=== PATIENT | male | born 1975 | race Caucasian/White ===

== ENCOUNTER 2023-05-08 09:12 | Inpatient (IN) ==
--- NOTE | 2023-05-08 09:39 | Emergency Department Note ---
Impression & Plan Pancreatitis, Metabolic acidosis, DM II (diabetes mellitus, type II), controlled, Hyperglycemia, Sinus tachycardia ED Provider Note NAME: CANDICE STACY AGE: 47 SEX: M : 1975 ARRIVES VIA: Walk-In INFORMANT: Patient ED PROVIDER(S): Roman Dwyer DO CHIEF COMPLAINT: abdominal pain HPI: Patient is a 47-year-old male who presents to the ER for epigastric periumbilical abdominal pain which started this past Sunday after eating fish at [employer]. He admits to some nausea but that has abated now. He notes his symptoms are generally worse about an hour after eating. Denies any headache or change in vision. No chest pain or shortness of breath. No dysuria, urgency, or frequency. He has never had this before with the exception of when he had pancreatitis he notes this feels similar. No previous abdominal surgeries. He does not drink alcohol. He believes the last time he had pancreatitis it was medication induced and he has stopped that medication but he forgets what it is. ADDITIONAL HISTORY OBTAINED: Per HPI Chronic Medical/Social Conditions Affecting Care: Per HPI PAST MEDICAL HISTORY:See Below PAST SURGICAL HISTORY:See Below FAMILY HISTORY:See Below SOCIAL HISTORY:See Below HOME MEDICATIONS:See Below ALLERGIES:See Below VITALS:See Below PHYSICAL EXAMINATION: GENERAL: Sitting up in bed, alert, well appearing, well nourished, no distress, non-toxic EYE EXAM: normal conjunctiva. OROPHARYNX: mucous membranes are moist LUNGS: Clear to auscultation. Normal chest wall mechanics HEART: no murmurs, S1 normal and S2 normal ABDOMEN: abdomen soft, tenderness to palpation in the epigastric/right upper quadrant, normo-active bowel sounds, no masses, no rebound or guarding. UPPER EXTREMITIES: upper extremities are grossly normal. LOWER EXTREMITIES: No pitting edema. NEURO EXAM: Normal sensorium, cranial nerves II-XII grossly intact, normal speech, no gross weakness of arms, no gross weakness of legs. MEDICAL DECISION MAKING: Patient is a 47-year-old male who presents ER with past medical history of pancreatitis and diabetes with above-stated complaint. IV was established blood was obtained. Labs show no significant leukocytosis or anemia. VBG with pH is 7.30. BMP with a slight acidosis with a CO2 of 19 and a gap of 14. Glucose was close patient 370 LFTs bilirubin was unremarkable. UA was contaminated. CT abdomen pelvis does show acute pancreatitis. Patient's potassium was repleted orally. Patient has not taken any insulin for several weeks. Patient was updated bedside discussed with hospitalist admitted for further workup. He was given IV fluids while in the ER. Consults/Care Managements Discussions: Per [facility] Triage Nursing notes reviewed. Limited review of prior medical records performed Vital Signs: reviewed and remarkable for tachy Differential diagnosis: Differential diagnoses includes but is not limited to gastritis, peptic ulcer disease, GERD, gallbladder disease, pancreatitis, small bowel obstruction, appendicitis, diverticulitis, hernia, urinary tract infection, torsion, [/ectopic (if female)], perforation, trauma, infectious. ER treatment provided: See below Diagnostics interpreted by me include EKG and cardiac monitoring as listed below: -Cardiac Monitoring: An order was placed for continuous cardiac monitoring. The monitor shows a rate of 110 with sinus rhythm. -ECG: Sinus tachycardia rate of 112 Normal axis No PVCs QTc 428 -Laboratory studies:Interpreted by me as stated above in MDM and shown below. Imaging studies: Xrays: As interpreted by me: Portable AP upright 1 view of the chest shows no focal Lutrate CTs show: CT abdomen pelvis shows pancreatitis Critical Care: None Past Med/Surg History Medical History (Updated 05/08/23 @ 15:39 by Roman Dwyer DO) Sinus tachycardia DM II (diabetes mellitus, type II), controlled Pancreatitis Social History Smoking Status: Never smoker Feels Safe at Home: Yes Allergies Allergies Allergy/AdvReac Type Severity Reaction Status Date / Time No Known Allergies Allergy Unverified 05/08/23 09:19 Home Meds Home Medications Medication Instructions Recorded Confirmed hydroxyzine HCl 10 mg tablet 10 mg PO DAILY PRN Anxiety 05/08/23 05/08/23 losartan 100 mg tablet 100 mg PO DAILY 05/08/23 05/08/23 rosuvastatin 5 mg tablet 5 mg PO QAM 05/08/23 05/08/23 zolpidem 5 mg tablet 5 mg PO HS PRN Sleep 05/08/23 05/08/23 Results & Data (ED) Vital Signs Vital Signs - 24 hr 05/08/23 09:15 05/08/23 10:35 05/08/23 10:47 Temperature 36.5 C Temperature Source Temporal Artery Scan Pulse Rate 120 H 112 H 113 H Pulse Rhythm Regular Respiratory Rate 20 20 Respiratory Effort / Characteristics Non-Labored Spontaneous Respiratory Depth Normal Blood Pressure 148/93 H 173/98 H Blood Pressure Mean 111 123 Pulse Oximetry 97 98 Oxygen Delivery Method Room Air Room Air Sepsis Recent Fever Within 48 Hours No Sepsis New/Unexplained Change in Mental Status No Sepsis Action Taken by Nursing No Action Required 05/08/23 12:10 05/08/23 13:18 05/08/23 14:23 Temperature Temperature Source Pulse Rate 100 H 106 H 110 H Pulse Rhythm Respiratory Rate 12 12 Respiratory Effort / Characteristics Respiratory Depth Blood Pressure 173/98 H 135/93 Blood Pressure Mean 123 107 Pulse Oximetry 98 92 Oxygen Delivery Method Room Air Room Air Sepsis Recent Fever Within 48 Hours Sepsis New/Unexplained Change in Mental Status Sepsis Action Taken by Nursing 05/08/23 14:45 Temperature Temperature Source Pulse Rate 104 H Pulse Rhythm Respiratory Rate 12 Respiratory Effort / Characteristics Respiratory Depth Blood Pressure 135/93 Blood Pressure Mean 107 Pulse Oximetry 96 Oxygen Delivery Method Room Air Sepsis Recent Fever Within 48 Hours Sepsis New/Unexplained Change in Mental Status Sepsis Action Taken by Nursing Laboratory Data 05/08/23 09:40 05/08/23 14:26 Lab Results 05/08/23 05/08/23 05/08/23 Range/Units 09:34 09:40 12:07 WBC 6.29 (4.8-10.8) K/ul RBC 4.89 (4.70-6.10) M/uL Hgb 15.0 (14.0-18.0) g/dl Hct 41.3 L (42.0-52.0) % MCV 84.5 (80.0-100.0) fL MCH 30.7 (25.0-34.0) pg MCHC 36.3 H (32.0-36.0) g/dL RDW Std Deviation 39.0 (36.4-46.3) fL RDW Coeff of Kia 12.9 (11.5-14.5) % Plt Count 193 (130-400) K/uL MPV 11.2 (9.4-12.4) fL Immature Gran % (Auto) 0.5 % Neut % (Auto) 54.5 % Lymph % (Auto) 31.6 % Maury % (Auto) 10.5 % Eos % (Auto) 2.4 % Baso % (Auto) 0.5 % Neut # (Auto) 3.43 (1.40-6.50) K/uL Lymph # (Auto) 1.99 (1.20-3.40) K/uL Maury # (Auto) 0.66 H (0.11-0.59) K/uL Eos # (Auto) 0.15 (0.00-0.50) K/uL Baso # (Auto) 0.03 (0.00-0.20) K/uL Immature Gran # (Auto) 0.03 (0.01-0.20) K/uL Absolute Nucleated RBC 0.02 (0.00-0.12) K/uL Nucleated RBC % (auto) 0.3 % Polychromasia 1+ Tear Drop Cells 1+ Acanthocytes (Spur) 1+ VBG pH 7.30 L (7.36-7.41) VBG pCO2 49 (38-50) mmHg VBG pO2 29 mmHg VBG HCO3 24 mmol/L VBG O2 Saturation < 60.0 % VBG Base Excess -2.8 mEq/L Sodium 135 L (136-145) mmol/L Potassium TNP Cancelled Chloride 98 (98-107) mmol/L Carbon Dioxide 20 L (21-32) mmol/L Anion Gap 17 H (3-11) BUN 10 (6-23) mg/dl Creatinine 1.06 (0.6-1.4) mg/dl Est Cr Clr Drug Dosing 110.4 ml/min Est GFR ( Amer) 95.7 ml/min Est GFR (Non-Af Amer) 82.6 ml/min BUN/Creatinine Ratio 9.4 L (10-20) Glucose 401 H* (70-99(Fasting)) mg/dl POC Glucose (70-99) mg/dl Estimat Average Glucose mg/dl Hemoglobin A1c (4.5-5.6) % Calcium 9.2 (8.6-10.3) mg/dl Phosphorus (2.5-4.9) mg/dl Magnesium (1.7-2.4) mg/dl Total Bilirubin 0.6 (0.2-1.0) mg/dl AST TNP Cancelled ALT 14 (7-52) U/L Alkaline Phosphatase 67 (34-104) U/L Total Protein 7.3 (6.0-8.3) gm/dl Albumin 4.1 (3.4-5.0) gm/dl Globulin 3.2 (2.5-4.0) gm/dl Albumin/Globulin Ratio 1.3 (0.9-2) Lipase 81 (11-82) U/L Urine Color Yellow Urine Appearance Clear (Clear) Urine pH 5.5 (4.5-7.5) Ur Specific [place] 1.040 H (1.000-1.030) Urine Protein 2+ H (Negative) Urine Glucose (UA) 3+ H (Negative) Urine Ketones 4+ H (Negative) Urine Blood 1+ H (Negative) Urine Nitrite Negative (Negative) Urine Bilirubin Negative (Negative) Urine Urobilinogen Negative (Negative) Ur Leukocyte Esterase Negative (Negative) Urine WBC (Auto) 0 (0-5) /hpf Urine RBC (Auto) 0-4 (0-4) /hpf U Hyaline Cast (Auto) 0 (0-5) /lpf U Epithel Cells (Auto) 0-5 (0-5) /lpf Urine Bacteria (Auto) Negative (Negative) 05/08/23 05/08/23 05/08/23 Range/Units 12:20 14:10 14:26 WBC (4.8-10.8) K/ul RBC (4.70-6.10) M/uL Hgb (14.0-18.0) g/dl Hct (42.0-52.0) % MCV (80.0-100.0) fL MCH (25.0-34.0) pg MCHC (32.0-36.0) g/dL RDW Std Deviation (36.4-46.3) fL RDW Coeff of Kia (11.5-14.5) % Plt Count (130-400) K/uL MPV (9.4-12.4) fL Immature Gran % (Auto) % Neut % (Auto) % Lymph % (Auto) % Maury % (Auto) % Eos % (Auto) % Baso % (Auto) % Neut # (Auto) (1.40-6.50) K/uL Lymph # (Auto) (1.20-3.40) K/uL Maury # (Auto) (0.11-0.59) K/uL Eos # (Auto) (0.00-0.50) K/uL Baso # (Auto) (0.00-0.20) K/uL Immature Gran # (Auto) (0.01-0.20) K/uL Absolute Nucleated RBC (0.00-0.12) K/uL Nucleated RBC % (auto) % Polychromasia Tear Drop Cells Acanthocytes (Spur) VBG pH 7.31 L (7.36-7.41) VBG pCO2 44 (38-50) mmHg VBG pO2 39 mmHg VBG HCO3 22 mmol/L VBG O2 Saturation 71.7 % VBG Base Excess -4.1 mEq/L Sodium 137 (136-145) mmol/L Potassium 4.2 Chloride 104 (98-107) mmol/L Carbon Dioxide 19 L (21-32) mmol/L Anion Gap 14 H (3-11) BUN 9 (6-23) mg/dl Creatinine 0.80 (0.6-1.4) mg/dl Est Cr Clr Drug Dosing 146.2 ml/min Est GFR ( Amer) 122.4 ml/min Est GFR (Non-Af Amer) 105.6 ml/min BUN/Creatinine Ratio 11.3 (10-20) Glucose 268 H (70-99(Fasting)) mg/dl POC Glucose 272 H (70-99) mg/dl Estimat Average Glucose 398 mg/dl Hemoglobin A1c 15.5 H (4.5-5.6) % Calcium 9.4 (8.6-10.3) mg/dl Phosphorus 2.7 (2.5-4.9) mg/dl Magnesium 1.9 (1.7-2.4) mg/dl Total Bilirubin (0.2-1.0) mg/dl AST 9 L ALT (7-52) U/L Alkaline Phosphatase (34-104) U/L Total Protein (6.0-8.3) gm/dl Albumin (3.4-5.0) gm/dl Globulin (2.5-4.0) gm/dl Albumin/Globulin Ratio (0.9-2) Lipase (11-82) U/L Urine Color Urine Appearance (Clear) Urine pH (4.5-7.5) Ur Specific [place] (1.000-1.030) Urine Protein (Negative) Urine Glucose (UA) (Negative) Urine Ketones (Negative) Urine Blood (Negative) Urine Nitrite (Negative) Urine Bilirubin (Negative) Urine Urobilinogen (Negative) Ur Leukocyte Esterase (Negative) Urine WBC (Auto) (0-5) /hpf Urine RBC (Auto) (0-4) /hpf U Hyaline Cast (Auto) (0-5) /lpf U Epithel Cells (Auto) (0-5) /lpf Urine Bacteria (Auto) (Negative) Administered Medications Discontinued Medications Sodium Chloride (Nss) 500 mls @ 999 mls/hr IV .Q31M STA Stop: 05/08/23 09:48 Last Admin: 05/08/23 09:44 Dose: Not Given Documented By: JEOVANNY Sodium Chloride (Nss) 1,000 mls @ 999 mls/hr IV .Q1H1M MAXINE Stop: 05/08/23 11:45 Last Infusion: 05/08/23 12:45 Dose: Infused Documented By: Admin: 05/08/23 11:44 Dose: 999 mls/hr Documented By: Infusion: 05/08/23 11:41 Dose: Infused Documented By: Admin: 05/08/23 09:44 Dose: 999 mls/hr Documented By: JEOVANNY Ioversol (Optiray 320 100ml) 91 ml IV ONCE ONE Stop: 05/08/23 11:49 Last Admin: 05/08/23 11:43 Dose: 91 ml Documented By: SAWYER Morphine Sulfate (Morphine Sulfate 4 Mg/Ml 1 Ml Carp\Vial) 4 mg IV NOW STA Stop: 05/08/23 09:37 Last Admin: 05/08/23 09:44 Dose: 4 mg Documented By: JEOVANNY Ondansetron HCl (Ondansetron Inj 2 Mg/Ml 2 Ml Vial) 4 mg IV NOW STA Stop: 05/08/23 09:37 Last Admin: 05/08/23 09:44 Dose: 4 mg Documented By: JEOVANNY Imaging Data Radiologist's Impression: Abdomen/Pelvis CT 05/08/23 09:36 CT abd pelvis IV con only CLINICAL HISTORY: epigastric abd pain feels like previous pancreatitis TECHNIQUE: Helical axial images of the abdomen and pelvis were obtained and displayed. Automated dose lowering techniques and/or adjustment according to patient size were utilized for this exam. This exam was performed with intravenous contrast. CT DOSE: 1594.21 mGy.cm COMPARISON: None available at the time of this dictation. FINDINGS: Lower chest: Bibasilar atelectasis versus scarring is seen. Liver: Questionable hepatic steatosis. Gallbladder and biliary tree: No calcified gallstones. Normal caliber wall. No intra- or extrahepatic biliary ductal dilation. Pancreas: Edema in the pancreatic head is seen with mild surrounding stranding. Spleen: Unremarkable. Adrenals: Unremarkable. Kidneys and ureters: Perinephric stranding is noted bilaterally. Bladder: Unremarkable. Reproductive organs: Unremarkable. Bowel: The appendix measures 9 mm with mildly prominent belle, no fat stranding is seen. Lymph nodes Retroperitoneal: Unremarkable. Pelvic: Unremarkable. Mesenteric: Unremarkable. Peritoneum: Normal. Vessels: Unremarkable. Abdominal wall: Right fat-containing inguinal hernia. Bones: Degenerative changes in the visualized spine. IMPRESSION: There is mild stranding of the pancreatic head compatible with mild pancreatitis. No acute peripancreatic collection or necrosis is seen. ACT 112: Negative or not required by law. Electronically signed by: Joseph Hernández M.D. 05/08/2023 12:20 PM Chest X-Ray 05/08/23 14:19 XR chest 1V portable HISTORY: Eval volume status, fever, chills COMPARISON: Abdomen and pelvis CT 05/08/2023. FINDINGS: No pneumothorax. No pleural effusions. The cardiac silhouette is borderline enlarged. Small right basilar linear densities favor subsegmental atelectasis are scarring. Otherwise, the lungs are clear. No evidence for pulmonary edema. No acute fractures. Mild proximal left tracheal deviation. IMPRESSION: 1. Borderline cardiomegaly. Otherwise, no acute process within the chest. 2. Mild proximal left tracheal deviation. This could be positional or due to a right thyroid goiter. Follow-up nonemergent thyroid ultrasound recommended for further evaluation. ACT 112: Negative or not required by law. Electronically signed by: Henrique Herndon M.D. 05/08/2023 2:35 PM Discharge Plan Visit Data Chief Complaint: Abdominal Pain Stated Complaint: ABD PAINS, BODY ACHES ED Provider: Roman Dwyer Discharge Problem: Pancreatitis, Metabolic acidosis, DM II (diabetes mellitus, type II), controlled, Hyperglycemia, Sinus tachycardia Forms Stand Alone Forms: [facility] [place] Prescriptions Prescriptions: No Action zolpidem 5 mg Tablet 5 mg PO HS PRN (Reason: Sleep) hydroxyzine HCl 10 mg tablet 10 mg PO DAILY PRN (Reason: Anxiety) losartan 100 mg Tablet 100 mg PO DAILY rosuvastatin 5 mg tablet 5 mg PO QAM Referrals Referrals: PCP,NO [Physician] - Discharge Problem: Pancreatitis Qualifiers: Chronicity: acute Pancreatitis type: unspecified pancreatitis type Acute pancreatitis complication: unspecified Qualified Code(s): K85.90 - Acute pancreatitis without necrosis or infection, unspecified DM II (diabetes mellitus, type II), controlled Qualifiers: Diabetes mellitus terminal carman insulin use: unspecified jail insulin use status Diabetes mellitus complication status: with unspecified complications Q ualified Code(s): E11.8 - Type 2 diabetes mellitus with unspecified complications
[2023-05-08] MEDS: SODIUM CHLORIDE 0.9% 1,000 ML IV SCH (09:44)
[2023-05-08] MEDS: MoRPHine SULFATE 4 MG/ML 1 ML CARP\\VIAL IV STA (09:44)
[2023-05-08] MEDS: ONDANSETRON INJ 2 MG/ML 2 ML VIAL IV STA (09:44)
[2023-05-08] MEDS: SODIUM CHLORIDE 0.9% 500 ML IV STA (09:44)
[2023-05-08 10:37] LABS: Appearance Urine Clear (Clear); Bacteria Urine Automated Negative (Negative); Bilirubin Urine Negative (Negative); Blood Urine 1+ (Negative); Cast Urine Automated 0 /lpf (0-5); Color Urine Yellow; Epithelial Cell Urine Auto 0-5 /lpf (0-5); Glucose Urine UA 3+ (Negative); Ketones Urine 4+ (Negative); Leukocyte Esterase Urine Negative (Negative); Nitrite Urine Negative (Negative); Protein Urine 2+ (Negative); RBC Urine Automated 0-4 /hpf (0-4); Urobilinogen Urine Negative (Negative); WBC Urine Automated 0 /hpf (0-5); pH Urine 5.5 (4.5-7.5)
[2023-05-08 10:56] LABS: Basophils # (auto) 0.03 K/uL (0.00-0.20); Basophils % (auto) 0.5 %; Eosinophils # (auto) 0.15 K/uL (0.00-0.50); Eosinophils % (auto) 2.4 %; Hematocrit (blood only) 41.3 % (42.0-52.0); Immature Granulocytes # (auto) 0.03 K/uL (0.01-0.20); Immature Granulocytes % (auto) 0.5 %; Lymphocytes # (auto) 1.99 K/uL (1.20-3.40); Lymphocytes % (auto) 31.6 %; Mean Corpuscular Hemoglobin 30.7 pg (25.0-34.0); Mean Corpuscular Hgb Conc 36.3 g/dL (32.0-36.0); Mean Corpuscular Volume 84.5 fL (80.0-100.0); Mean Platelet Volume 11.2 fL (9.4-12.4); Monocytes # (auto) 0.66 K/uL (0.11-0.59); Monocytes % (auto) 10.5 %; Neutrophils # (auto) 3.43 K/uL (1.40-6.50); Neutrophils % (auto) 54.5 %; Nucleated RBC # (auto) 0.02 K/uL (0.00-0.12); Nucleated RBC % (auto) 0.3 %; Platelet Count 193 K/uL (130-400); RDW Coefficient of Variation 12.9 % (11.5-14.5); Red Blood Count 4.89 M/uL (4.70-6.10); White Blood Count 6.29 K/ul (4.8-10.8)
[2023-05-08 11:01] LABS: Acanthocytes 1+; Polychromasia 1+; Tear Drop Cells 1+
[2023-05-08 11:22] LABS: Alanine Aminotransferase 14 U/L (7-52); Albumin Globulin Ratio 1.3 (0.9-2); Albumin Level 4.1 gm/dl (3.4-5.0); Alkaline Phosphatase 67 U/L (34-104); Anion Gap 17 (3-11); BUN Creatinine Ratio 9.4 (10-20); Bilirubin,Total 0.6 mg/dl (0.2-1.0); Blood Urea Nitrogen 10 mg/dl (6-23); Calcium 9.2 mg/dl (8.6-10.3); Carbon Dioxide 20 mmol/L (21-32); Chloride 98 mmol/L (98-107); Creatinine Clr Calc Pharmacy 110.4 ml/min; Est GFR (African American) 95.7 ml/min; Est GFR (Non-African American) 82.6 ml/min; Globulin 3.2 gm/dl (2.5-4.0); Glucose 401 mg/dl (70-99(Fasting)); Lipase 81 U/L (11-82); Sodium 135 mmol/L (136-145); Total Protein 7.3 gm/dl (6.0-8.3)
[2023-05-08] MEDS: OPTIRAY 320 100ml IV ONE (11:43)
[2023-05-08 12:19] LABS: Base Excess VBG -2.8 mEq/L; HCO3 VBG 24 mmol/L; Oxygen Saturation VBG < 60.0 %; PCO2 VBG 49 mmHg (38-50); PO2 VBG 29 mmHg
--- NOTE | 2023-05-08 12:22 | CT Scan Report ---
CT abd pelvis IV con only CLINICAL HISTORY: epigastric abd pain feels like previous pancreatitis TECHNIQUE: Helical axial images of the abdomen and pelvis were obtained and displayed. Automated dose lowering techniques and/or adjustment according to patient size were utilized for this exam. This e xam was performed with intravenous contrast. CT DOSE: 1594.21 mGy.cm COMPARISON: None available at the time of this dictation. FINDINGS: Lower chest: Bibasilar atelectasis versus scarring is seen. Liver: Questionable hepatic steatosis. Gallbladder and biliary tree: No calcified gallstones. Normal caliber wall. No intra- or extrahepatic biliary ductal dilation. Pancreas: Edema in the pancreatic head is seen with mild surrounding stranding. Spleen: Unremarkable. Adrenals: Unremarkable. Kidneys and ureters: Perinephric stranding is noted bilaterally. Bladder: Unremarkable. Reproductive organs: Unremarkable. Bowel: The appendix measures 9 mm with mildly prominent belle, no fat stranding is seen. Lymph nodes Retroperitoneal: Unremarkable. Pelvic: Unremarkable. Mesenteric: Unremarkable. Peritoneum: Normal. Vessels: Unremarkable. Abdominal wall: Right fat-containing inguinal hernia. Bones: Degenerative changes in the visualized spine. IMPRESSION: There is mild stranding of the pancreatic head compatible with mild pancreatitis. No acute peripancre atic collection or necrosis is seen. ACT 112: Negative or not required by law. Electronically signed by: Joseph Hernández M.D. 05/08/2023 12:20 PM
--- NOTE | 2023-05-08 13:25 | History & Physical Report ---
Date of Service May 08, 2023 Assessment & Plan (1) Pancreatitis: (2) Metabolic acidosis: (3) DM II (diabetes mellitus, type II), controlled: (4) Hyperglycemia: Plan: Acute Pancreatitis - Admit to med surg - NPO for now - Fluid hydration, antiemetics, pain control - CT abd/pelvis reviewed showing pancreatic head stranding showing mild pancreatitis, lipase only 81 Metabolic Acidosis DM II HHS - Glucose of 400 down to 270 s/p fluid resuscitation, AG of 17, pH of 7.3, awaiting potassium to determine insulin administration/fluids. possibly may require insulin gtt, pending repeat labs --- insulin basal bolus ordered, no gtt for now. - Dehydration secondary to acute pancreatitis and inability to tolerate po intake - Check A1c, repeat VBG, mag and Phos now, trending BMP, and other labs every 4 hours - Once lab diet can have heart healthy/diabetic Sinus tachycardia Questionable history of CHF and Cardiomyopathy? HTN HLD -Check EKG now as was not yet obtained in the ER, follow-up echocardiogram with history of an EF of 30% - Will obtain ECHO today -Consider trying to obtain records from [facility] in [place] from 2019, that was his most recent cardiology outpatient following reports having previous PCI at that timeframe and was taken off testosterone which apparently may have been causing cardiac causes. He was also previously on metoprolol, stopped in 2020 himself because of insurance issues again. - Consider cardiology consultation - will need to est as outpat upon discharge - Cont losartan 100 mg daily, rosuvastatin 5 mg daily - Consider metoprolol if no improvement in tachycardia as above Fever, chills - Continue infectious workup to r/o other causes including CXR --negative for acute process but shows left tracheal deviation - possible R thyroid goiter, nonemergent US thyroid recommended, can defer to PCP due to insurance coverage - Check RVP swab to r/o flu/RSV/Covid --- negative - UA is negative for acute infection and was obtained for hyperglycemia as above - WBC 6.29, afebrile here, DVT ppx: teds, scds Lines: 2 PIV FEN/GI: Fluid as above, NPO CODE: FULL Dispo: From home, likely to remain in the hospital x 1-2 days A total of 85 minutes were spent with greater than 50% of that time face to face with the patient, personally reviewing all current laboratories, imaging studies, past medication reconciliation, outpatient chart review, and discussion with specialists to collaborate care for the patient with attending. Please see attending documentation for corrections and/or additions. (5) Sinus tachycardia: History of Present Illness Chief Complaint: Abdominal Pain Primary Care Provider: Mitzi Dickerson PA-C This is a 47 yo M with PMHx of pancreatitis, HTN, HLD, history of tachycardia with previous echo which showed reduced EF of 30% and cardiac cath in 2019 which is reportedly clean per the patient, history of DM type II since age 26, but has been off of NovoLog since he lost his job and health insurance in December 2022. He's trialed metformin however states that it didn't work effectively to reduce his A1C. 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 He is requesting another prescription for insulin versus diabetic medication at this time as he feels he will be able to afford it, his insurance kicks in in the middle of May. He presents to hospital with increased abdominal pain, nausea, vomiting. CT of the abdomen is showing mild pancreatitis. He has not taken medications including novolog for several weeks. This started on Sunday, with abdominal pain and 1 episode of diarrhea. He reports no further diarrhea since that time, but epigastric abdominal pain is coming down his left flank region to the lower quadrant. He has had intermittent nausea, no vomiting, loss of appetite, without any p.o. intake today. He reports having chills/sweats the last 3 days with possible fever but did not take his temperature at home. He denies any recent sick contacts. Patient is tachycardic at bedside, he states that he has consistently had a faster heartbeat. He was previously followed by [facility] in [place] in 2020 where he was noted to have had cardiac pauses where he felt like his heart stopped, at that time he was on testosterone. In echocardiogram was done at that point showing heart function of 30%, and then underwent a PCI which showed clean cardiac cath per the patient. He thinks he had a repeat ultrasound of his heart later which showed improvement in such after being taken off of testosterone replacement. On admission, glucose is 400, improved to 270 with fluids in the ER. Metabolic acidosis with pH of 7.3, AG of 17, and pt with urines showing ketones. He feels improved since coming here and receiving fluids. Social history: Denies alcohol use, tobacco use, illicit drug use and marijuana Family history: Strong family history of diabetes, his mom, maternal uncle sister and father all have diabetes, father side has strong history of hypertension Surgical history: Left knee meniscus repair x 3, last in 2013 Right knee meniscus repair x 1 Bilateral shoulder rotator cuff surgery, Right in 2016, left in 2018 Allergies Allergy/AdvReac Type Severity Reaction Status Date / Time No Known Allergies Allergy Unverified 05/08/23 09:19 Home Medications Medication Instructions Recorded Confirmed Type hydroxyzine HCl 10 mg tablet 10 mg PO DAILY PRN Anxiety 05/08/23 05/08/23 History losartan 100 mg tablet 100 mg PO DAILY 05/08/23 05/08/23 History rosuvastatin 5 mg tablet 5 mg PO QAM 05/08/23 05/08/23 History zolpidem 5 mg tablet 5 mg PO HS PRN Sleep 05/08/23 05/08/23 History Past Med/Surg History Medical History (Updated 05/08/23 @ 15:39 by Roman Dwyer DO) Sinus tachycardia DM II (diabetes mellitus, type II), controlled Pancreatitis Social History Smoking Status: Never smoker Second Hand Exposure: No; Do You Dip or Chew Tobacco: No; Tobacco Cessation Education Requested by Patient: No Hx Alcohol Use: No Hx Substance Use: No Preferred Language: American Communication Ability: Effective Athletic Events Scorer Required: No Beliefs That Will Affect Care: None Current Living Situation: Spouse Other Information That Helps Us Care for You: No Feels Safe at Home: Yes Assistive Devices: None Review of Systems 2 Review of Systems: Constitutional:+ fever, + chills as per HPI Eyes: No diplopia, no worsening or blurred vision ENT: normal hearing, no trouble swallowing Respiratory: No cough, sputum, dyspnea at rest or on exertion Cardiovascular: No chest pain, tightness or palpitations, no lightheadedness or dizziness Abdomen: + Epigastric pain, radiating to the left flank and left lower quadrant, + nausea, no vomiting, diarrhea or constipation Musculoskeletal: No joint pain, calf pain, swelling Neurologic: No weakness, numbness/tingling, or balance problems Psychiatric: No anxiety or depression Skin: No rash or itch Physical Exam Physical Exam: General: awake, alert, no apparent distress, white male Head: Normocephalic, atraumatic ENT: PERRL, EOMI, no pharyngeal exudate, mucous membranes moist Chest: Clear to auscultation, on room air, no adventitious breath sounds Cardiac: + sinus tachy, no murmur, no JVD, normal peripheral pulses, good capillary refill Abdominal: NABS x 4 quadrants, soft, nondistended, + epigastric tender to palpation, no rebound or guarding Extremities: Normal inspection, no peripheral edema or erythema, calfs nontender to palpation Psych: Normal mood and affect Neuro: AAO x 3, strength intact bilaterally and rated 5/5, no motor deficits, speech is clear, no peripheral sensory deficits Results & Data Results & Data Vital Signs (Past 12 Hours) Vital Signs Temp Pulse Resp BP Pulse Ox O2 Del Method 05/08/23 12:10 100 H 12 173/98 H 98 Room Air 05/08/23 10:47 113 H 05/08/23 10:35 112 H 20 173/98 H 98 Room Air 05/08/23 09:15 36.5 C 120 H 20 148/93 H 97 Room Air Laboratory Results 05/08/23 05/08/23 05/08/23 12:20 12:07 09:40 WBC 6.29 RBC 4.89 Hgb 15.0 Hct 41.3 L MCV 84.5 MCH 30.7 MCHC 36.3 H RDW Std Deviation 39.0 RDW Coeff of Kia 12.9 Plt Count 193 MPV 11.2 Immature Gran % (Auto) 0.5 Neut % (Auto) 54.5 Lymph % (Auto) 31.6 Wayne % (Auto) 10.5 Eos % (Auto) 2.4 Baso % (Auto) 0.5 Neut # (Auto) 3.43 Lymph # (Auto) 1.99 Wayne # (Auto) 0.66 H Eos # (Auto) 0.15 Baso # (Auto) 0.03 Immature Gran # (Auto) 0.03 Absolute Nucleated RBC 0.02 Nucleated RBC % (auto) 0.3 Polychromasia 1+ Tear Drop Cells 1+ Acanthocytes (Spur) 1+ VBG pH 7.30 L VBG pCO2 49 VBG pO2 29 VBG HCO3 24 VBG O2 Saturation < 60.0 VBG Base Excess -2.8 Sodium 135 L Potassium TNP Chloride 98 Carbon Dioxide 20 L Anion Gap 17 H BUN 10 Creatinine 1.06 Est Cr Clr Drug Dosing 110.4 Est GFR ( Amer) 95.7 Est GFR (Non-Af Amer) 82.6 BUN/Creatinine Ratio 9.4 L Glucose 401 H* POC Glucose 272 H Calcium 9.2 Total Bilirubin 0.6 AST TNP ALT 14 Alkaline Phosphatase 67 Total Protein 7.3 Albumin 4.1 Globulin 3.2 Albumin/Globulin Ratio 1.3 Lipase 81 Urine Color Urine Appearance Urine pH Ur Specific [place] Urine Protein Urine Glucose (UA) Urine Ketones Urine Blood Urine Nitrite Urine Bilirubin Urine Urobilinogen Ur Leukocyte Esterase Urine WBC (Auto) Urine RBC (Auto) U Hyaline Cast (Auto) U Epithel Cells (Auto) Urine Bacteria (Auto) 05/08/23 09:34 WBC RBC Hgb Hct MCV MCH MCHC RDW Std Deviation RDW Coeff of Kia Plt Count MPV Immature Gran % (Auto) Neut % (Auto) Lymph % (Auto) Wayne % (Auto) Eos % (Auto) Baso % (Auto) Neut # (Auto) Lymph # (Auto) Wayne # (Auto) Eos # (Auto) Baso # (Auto) Immature Gran # (Auto) Absolute Nucleated RBC Nucleated RBC % (auto) Polychromasia Tear Drop Cells Acanthocytes (Spur) VBG pH VBG pCO2 VBG pO2 VBG HCO3 VBG O2 Saturation VBG Base Excess Sodium Potassium Chloride Carbon Dioxide Anion Gap BUN Creatinine Est Cr Clr Drug Dosing Est GFR ( Amer) Est GFR (Non-Af Amer) BUN/Creatinine Ratio Glucose POC Glucose Calcium Total Bilirubin AST ALT Alkaline Phosphatase Total Protein Albumin Globulin Albumin/Globulin Ratio Lipase Urine Color Yellow Urine Appearance Clear Urine pH 5.5 Ur Specific [place] 1.040 H Urine Protein 2+ H Urine Glucose (UA) 3+ H Urine Ketones 4+ H Urine Blood 1+ H Urine Nitrite Negative Urine Bilirubin Negative Urine Urobilinogen Negative Ur Leukocyte Esterase Negative Urine WBC (Auto) 0 Urine RBC (Auto) 0-4 U Hyaline Cast (Auto) 0 U Epithel Cells (Auto) 0-5 Urine Bacteria (Auto) Negative Diagnostic Findings Abdomen/Pelvis CT 05/08/23 09:36 CT abd pelvis IV con only CLINICAL HISTORY: epigastric abd pain feels like previous pancreatitis TECHNIQUE: Helical axial images of the abdomen and pelvis were obtained and displayed. Automated dose lowering techniques and/or adjustment according to patient size were utilized for this exam. This exam was performed with intravenous contrast. CT DOSE: 1594.21 mGy.cm COMPARISON: None available at the time of this dictation. FINDINGS: Lower chest: Bibasilar atelectasis versus scarring is seen. Liver: Questionable hepatic steatosis. Gallbladder and biliary tree: No calcified gallstones. Normal caliber wall. No intra- or extrahepatic biliary ductal dilation. Pancreas: Edema in the pancreatic head is seen with mild surrounding stranding. Spleen: Unremarkable. Adrenals: Unremarkable. Kidneys and ureters: Perinephric stranding is noted bilaterally. Bladder: Unremarkable. Reproductive organs: Unremarkable. Bowel: The appendix measures 9 mm with mildly prominent belle, no fat stranding is seen. Lymph nodes Retroperitoneal: Unremarkable. Pelvic: Unremarkable. Mesenteric: Unremarkable. Peritoneum: Normal. Vessels: Unremarkable. Abdominal wall: Right fat-containing inguinal hernia. Bones: Degenerative changes in the visualized spine. IMPRESSION: There is mild stranding of the pancreatic head compatible with mild pancreatitis. No acute peripancreatic collection or necrosis is seen. ACT 112: Negative or not required by law. Electronically signed by: Joseph Hernández M.D. 05/08/2023 12:20 PM Code Status & VTE Plan Code Status Full code - discussed with pt at bedside Supervising Physician Co-Signing Physician Notes Pt was seen and examined by myself, Yee Ledesma MD on the day of service. Care was coordinated with Bina Mckeon PA-C. 47yoM with Hx of DM and remote Hx of pancreatitis in the past. States that he was told his last episode of pancreatitis was related to his use of the medication Ezetimibe. Notes that his triglycerides might be high. Denies chronic alcohol use. Having LUQ abdominal pain. has not been able to eat or drink for some time. States he is very thirsty. Lost insurance so has not been taking his meds. Currently only on rosuvastatin, losartan and low dose aspirin. AAOx3 on exam, no acute distress. RRR, breath sounds clear Tender to palpation over LUQ. VBG ph 7.30 HCO3 of 24, pCO2 of 49 Anion gap of 17 Na 135 Glucose of 401 UA with 3+ glucose, Ketones 4+, hematuria CT abd/pelvis with noted pancreatitis DKA- glucose level decreasing to around 250, switch to basal/bolus regimen. IV hydration w/ 1/2NSS and K+ running @ 100 due to echo results that show CHF. q4h VBG pH, BMP, Mag and phos. Follow gap to closing. Glycemic consult. Pancreatitis- stat lipid panel for hypertriglyceridemia as a cause, per lab blood samples are lipemic. Pt denies chronic alcohol use, not on many meds at this time due to insurance issues. Fluids @100 rather than high flow due to noted HFrEF on echo. Continue to monitor symptoms. Advance diet as tolerated. HFrEF, tachycardia-HFrEF noted on echo with hypokinesis of the wall. Per pt, was on metoprolol at some point, restarted metoprolol tartrate 12.5mg BID. Notes Hx of unremarkable cardiac cath in the recent past. Cardiology consulted for further recs. Hematuria- noted on UA. Consider outpt urology followup Otherwise as above. I spent a total [id number] coordinating, documenting, and providing care for this patient excluding time spent in the performance of separately billed services
--- NOTE | 2023-05-08 14:37 | XRay Report ---
XR chest 1V portable HISTORY: Eval volume status, fever, chills COMPARISON: Abdomen and pelvis CT 05/08/2023. FINDINGS: No pneumothorax. No pleural effusions. The cardiac silhouette is borderline enlarged. Small right basilar linear densities favor subsegmental atelectasis are scarring. Otherwise, the lungs are clear. No evidence for pulmonary edema. No acute fractures. Mild proximal left tracheal deviation. IMPRESSION: 1. Borderline cardiomegaly. Otherwise, no acute process within the chest. 2. Mild proximal left tracheal deviation. This could be positional or due to a right thyroid goiter. Follow-up nonemergent thyroid ultrasound recommended for further evaluation. ACT 112: Negative or not required by law. Electronically signed by: Henrique Herndon M.D. 05/08/2023 2:35 PM
[2023-05-08 14:45] LABS: Base Excess VBG -4.1 mEq/L; HCO3 VBG 22 mmol/L; Oxygen Saturation VBG 71.7 %; PCO2 VBG 44 mmHg (38-50); PO2 VBG 39 mmHg; pH VBG 7.31 (7.36-7.41)
[2023-05-08 14:52] LABS: Estimated Average Glucose 398 mg/dl; Hemoglobin A1C 15.5 % (4.5-5.6)
[2023-05-08 15:25] LABS: Calcium 9.4 mg/dl (8.6-10.3); Magnesium 1.9 mg/dl (1.7-2.4); Potassium 4.2 mmol/L (3.5-5.1)
[2023-05-08 15:31] LABS: BUN Creatinine Ratio 11.3 (10-20); Creatinine Clr Calc Pharmacy 146.2 ml/min; Est GFR (African American) 122.4 ml/min; Est GFR (Non-African American) 105.6 ml/min; Phosphorus 2.7 mg/dl (2.5-4.9)
[2023-05-08 16:22] LABS: Influenza A virus by PCR Negative (Neg); Influenza B virus by PCR Negative (Neg); RSV by PCR Negative (Neg); SARS CoV2 RNA(COVID-19) Ceph NEGATIVE (Negative)
[2023-05-08] MEDS: SODIUM CHLOR 0.45% + 20MEQ KCL 20 MEQ/1,000 ML BAG IV SCH (16:49)
--- NOTE | 2023-05-08 17:19 | Electrocardiogram Report ---
Test Reason : Blood Pressure : / mmHG Vent. Rate : 112 BPM Atrial Rate : 112 BPM P-R Int : 136 ms QRS Dur : 090 ms QT Int : 314 ms P-R-T Axes : 052 004 013 degrees QTc Int : 428 ms Sinus tachycardia Nonspecific T wave abnormality Abnormal ECG No previous ECGs available Confirmed by Emil Porter ([id number]) on 05/08/2023 5:18:25 PM Referred By: REFERRED SELF Confirmed By:Matias Porter
[2023-05-08] MEDS ORDERED: GLUCOSE 40% GEL 15 GM TUBE PO PRN (17:40)
[2023-05-08] MEDS ORDERED: POLYETHYLENE (MIRALAX) 17 GM PACK PO PRN (17:40)
[2023-05-08] MEDS ORDERED: ACETAMINOPHEN 325 MG TAB PO PRN (17:40)
[2023-05-08] MEDS ORDERED: GLUCOSE 10 TAB/TUBE PO PRN (17:40)
[2023-05-08] MEDS ORDERED: PHARMACY GLYCEMIC MGMT CONSULT PRN (17:40)
[2023-05-08] MEDS ORDERED: GLUCAGON FOR INJ 1 MG VIAL SQ PRN (17:40)
[2023-05-08] MEDS ORDERED: CARBOHYDRATES FOR HYPOGLYCEMIA PO PRN (17:40)
[2023-05-08] MEDS ORDERED: ONDANSETRON INJ 2 MG/ML 2 ML VIAL IV PRN (17:40)
[2023-05-08] MEDS ORDERED: DEXTROSE 50% 50 ML SYRINGE IV PRN (17:40)
[2023-05-08] MEDS: oxyCODONE HCL IR 5 MG TAB (IMMEDIATE RELEASE) PO PRN (18:41)
[2023-05-08] MEDS: INSULIN ASPART PER UNIT CHARGE SC SCH (18:42)
[2023-05-08] MEDS: METOPROLOL TARTRATE 25 MG TAB PO SCH (20:55)
[2023-05-08 20:56] LABS: Anion Gap 13 (3-11); Calcium 9.1 mg/dl (8.6-10.3); Carbon Dioxide 16 mmol/L (21-32); Chloride 107 mmol/L (98-107); Magnesium 1.9 mg/dl (1.7-2.4); Potassium 4.1 mmol/L (3.5-5.1); Sodium 136 mmol/L (136-145)
[2023-05-08] MEDS: LANTUS PER UNIT CHARGE SQ SCH (20:56)
[2023-05-08 21:02] LABS: BUN Creatinine Ratio 11.4 (10-20); Blood Urea Nitrogen 9 mg/dl (6-23); Creatinine Clr Calc Pharmacy 148.1 ml/min; Est GFR (African American) 123.1 ml/min; Est GFR (Non-African American) 106.2 ml/min; Glucose 227 mg/dl (70-99(Fasting)); Phosphorus 2.6 mg/dl (2.5-4.9)
[2023-05-08 21:39] LABS: Chol HDL Ratio 36.2 (0-5); Cholesterol 723 mg/dl (0-200); HDL Cholesterol 20 mg/dl; Triglycerides 3698 mg/dl (0-150)
[2023-05-08 23:39] LABS: Calcium 8.8 mg/dl (8.6-10.3); Magnesium 1.9 mg/dl (1.7-2.4); Potassium 4.2 mmol/L (3.5-5.1)
[2023-05-08 23:44] LABS: BUN Creatinine Ratio 9.6 (10-20); Creatinine Clr Calc Pharmacy 124.5 ml/min; Est GFR (African American) 110.7 ml/min; Est GFR (Non-African American) 95.5 ml/min; Phosphorus 3.3 mg/dl (2.5-4.9)
[2023-05-09 04:13] LABS: Calcium 8.7 mg/dl (8.6-10.3); Potassium 4.2 mmol/L (3.5-5.1)
[2023-05-09 04:19] LABS: BUN Creatinine Ratio 9.2 (10-20); Creatinine Clr Calc Pharmacy 119.4 ml/min; Est GFR (African American) 105.2 ml/min; Est GFR (Non-African American) 90.8 ml/min; Phosphorus 3.1 mg/dl (2.5-4.9)
[2023-05-09] MEDS: MoRPHine SULFATE 4 MG/ML 1 ML CARP\\VIAL IV PRN (05:15)
--- NOTE | 2023-05-09 07:50 | Cardiology Consultation ---
Date of Consultation May 09, 2023 Assessment & Plan (1) Pancreatitis: (2) Type 2 diabetes mellitus: (3) DKA (diabetic ketoacidosis): (4) Acute on chronic HFrEF (heart failure with reduced ejection fraction): (5) Sinus tachycardia: Plan IMPRESSION: 47 year old male admitted with acute pancreatitis and DKA. History of HFrEF with EF as low at 30% (2019)--resolved per the patient. Echo this admission showed an EF of 45 to 50%. PLAN: Pancreatitis/DKA: TG level 3698. Metabolic acidosis with DKA A1c 15.5% 1. Will defer to primary service. Spoke with Dr. Beck-- plans to start insulin gtt. Fluid hydration, antiemetics, pain control. HFrEF: Patient appear euvolemic on exam. NYHA class 1. HR tachycardic without arrhythmia on telemetry. 1. Regard GDMT: -Discontinue metoprolol titrate in favor of metoprolol succinate 25 mg daily. Will likely require higher doses -Continue Losartan 100 mg daily 2. Continue aspirin and statin as ordered. Triglyceride level should impro ve with blood glucose management. 3. Will need to obtain records from prior cardiology care in [place]. 4. Will need to consider outpatient stress testing and cardiac MRI once acute illness with pancreatitis is managed. Case discussed with Dr. Matamoros. Further recommendations pending his assessment. I spent a total of 60 minutes on the date of service in preparation, delivery, and documentation of the care provided to the patient excluding any time spent in the performance of separately billed services. THOMAS Hernandez Department of Cardiology, [facility] This chart was completed in part utilizing Speech Voice Recognition Software. Grammatical errors, random word insertions, pronoun errors, and incomplete sentences are an occasional consequence of this system due to software limitations, ambient noise, and hardware issues. Any formal questions or concerns about the content, text, or information contained within the body of this dictation should be directly addressed to the provider for clarification. Supervising Physician Co-Signing Physician Notes I have reviewed the advance practitioner's documentation, and I agree with, and take responsibility for the plan of care. 47-year-old male presented to the emergency department with abdominal pain and pancreatitis. Resting 2D transthoracic echocardiogram demonstrating mild LV systolic function with a inferoseptal wall motion abnormality. Denies chest discomfort, heaviness, or shortness of breath. Glucose greater than 400s and triglycerides greater than 2000 on admission. Patient admits to noncompliance with all medications since December when he lost his job. He is in the process of reestablishing with healthcare providers. Denies exertional chest pain or unusual shortness of breath. 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 Denies any functional imitations. Reports history of cardiomyopathy in 2019 with an ejection fraction of 30%. Diagnosis made while living in [place], [place]. Reports being treated with beta-rosalio for approximately 1 year and then discontinued medication. He has been off all cardiac medications since 2020. Reports "normal" cardiac catheterization in 2019. PE: Hypertensive. Borderline elevated heart rate. General: NAD, awake alert and oriented x 3. Heart: Regular rhythm, normal S1-S2. No murmur. Lungs: Clear bilateral, no rales, rhonchi, wheeze. Abdomen: Mild tenderness, no rebound or guarding. Hypoactive bowel sounds. Extremities: No edema. A/P: 47-year-old male with 2D echocardiographic evidence of mild LV systolic dysfunction with moderate hypokinesis of the inferoseptum and base inferior wall. Regional wall motion abnormality concerning for chronic ischemic heart disease, however, patient denies history of CAD with normal cardiac catheterization in 2020. Chronicity of LV dysfunction and wall motion abnormality unknown. Denies any recent anginal symptoms. 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 Olivas in [place], [place]. Add guideline directed medical therapy, Toprol-XL 25 mg twice daily. Continue losartan 100 mg daily. Outpatient exercise stress testing and cardiac MRI when patient has recovered from pancreatitis. History of Present Illness Reason for Consultation: CHF Requesting Physician: Noel ayala Attending Physician: Lorna Beck MD History of Present Illness 47-year-old male who presented to [facility] emergency department due to abdominal pain, nausea/vomiting. CT of the abdomen showed pancreatitis. Has a history of type 2 diabetes, insulin requiring-- however has not been taking his insulin since December due to cost/insurance reasons. On admission, glucose is 400, improved to 270 with fluids in the ER. Metabolic acidosis with pH of 7.3, AG of 17, and pt with urine showing ketones. Lipase 81. Was treated with IV fluids and pain Meds. Patient NPO. Insulin restarted this admission. Lipids: TG 3698, Cholesterol 723, LDL?, HDL 20, EKG showed: EKG with nonspecific T wave abnormalities, 112 bpm Echo: LVEF 45 to 50% with moderate hypokinesis of the basal/mid inferior septum and inferior wall, borderline diffuse hypokinesis. Mild concentric LVH. No significant valvular pathology. Upon entrance into the room patient resting comfortably in bed. Notes that his abdominal discomfort has since resolved. His appetite is increasing. No nausea or vomiting. Denies exertional chest pain but has had reflux/burning-like discomfort in his chest over the weekend. Notes some mild dyspnea with exertion as well as generalized malaise. No palpitations, dizziness, syncope or near syncope. No orthopnea, PND, or increased lower extremity edema. No fever, chills, cough, hematochezia, melena, or hemoptysis. Notes a prior cardiac history dating back to 2019 where he was having symptoms of lightheadedness and sensations of his "heart pausing". Was worked up by [facility] in [place] who did an echocardiogram revealing systolic CHF with an LVEF as low as 30%. During this time he was taking testosterone replacement therapy which caused an increase in his hemoglobin. Testosterone was ultimately discontinued and he underwent a heart catheterization, per the patient coronary arteries were without obstructive disease and no stent was placed. He was placed on goal-directed medical therapy with metoprolol succinate 150 mg daily (notes that his heart rates run on the higher side to begin with) and he has had an echocardiogram with normal LVEF since then. Patient self discontinued metoprolol succinate due to insurance reasons. Social history: Denies alcohol use, tobacco use, illicit drug use and marijuana Family history: Strong family history of diabetes, his mom, maternal uncle sister and father all have diabetes, father side has strong history of hypertension Past medical history: Hypertension Hyperlipidemia History of sign tachycardia Personal history of sinus pauses-- was on testosterone at the time (followed with [facility] in [place], 2019) Echo revealed systolic CHF with an LVEF of 30% Status post cardiac cath in [place] 2019 with angiographically normal coronary arteries per patient. Testosterone discontinued at that time Type II by diabetes--insulin requiring History of pancreatitis, 2019 Medication noncompliance due to insurance/cost reasons Allergies Allergy/AdvReac Type Severity Reaction Status Date / Time No Known Allergies Allergy Unverified 05/08/23 09:19 Home Medications Medication Instructions Recorded Confirmed Type hydroxyzine HCl 10 mg tablet 10 mg PO DAILY PRN Anxiety 05/08/23 05/08/23 History losartan 100 mg tablet 100 mg PO DAILY 05/08/23 05/08/23 History rosuvastatin 5 mg tablet 5 mg PO QAM 05/08/23 05/08/23 History zolpidem 5 mg tablet 5 mg PO HS PRN Sleep 05/08/23 05/08/23 History Patient History Medical History (Updated 05/09/23 @ 10:29 by THOMAS Mohamud) Sinus tachycardia DM II (diabetes mellitus, type II), controlled Pancreatitis Social History Smoking Status: Never smoker Second Hand Exposure: No; Do You Dip or Chew Tobacco: No; Tobacco Cessation Education Requested by Patient: No Hx Alcohol Use: No Hx Substance Use: No Preferred Language: American Communication Ability: Effective Scrap Burner Required: No Beliefs That Will Affect Care: None Current Living Situation: Spouse Other Information That Helps Us Care for You: No Feels Safe at Home: Yes Assistive Devices: None Review of Systems Review of Systems: All systems reviewed & are unremarkable except as noted in HPI & below Physical Exam Constitutional: WD/WN, vitals as above no acute distress Eyes: PERRL, conjunctivae normal, anicteric sclerae ENMT: external ear and nose normal, oropharynx normal Neck: normal visual inspection and trachea midline Respiratory: normal respiratory effort, lungs clear to auscultation Cardiovascular: RRR, no murmur, no edema Rate/Rhythm: regular rhythm and + tachycardic Heart Sounds: normal S1 and normal S2; no murmur Vessels: no JVD Extremities: no edema Gastrointestinal (Abdomen): normal bowel sounds, soft, nontender, no hep atosplenomegaly Skin: no rashes, warm and dry Neurologic: PERRL, EOMI, accommodation nl, no face palsy, no dysarthria Psychiatric: A+Ox3, euthymic affect Results & Data Vital Signs (Past 12 Hours) Vital Signs Temp Pulse Pulse Resp BP Pulse Ox Pulse Ox 05/09/23 05:34 101 H 17 98 05/09/23 03:00 103 H 18 144/78 H 95 05/09/23 00:00 96 05/08/23 23:37 36.8 C 97 H 20 151/89 H 96 05/08/23 22:58 100 H O2 Del Method O2 Del Method 03/20/24 05:34 Room Air 05/09/23 03:00 Room Air 05/09/23 00:00 Room Air 05/08/23 23:37 Room Air 05/08/23 22:58 Laboratory Results Cardiac Enzymes 05/08/23 05/08/23 05/08/23 Range/Units 09:40 12:07 14:26 AST TNP Cancelled 9 L Lipids 05/08/23 Range/Units 20:09 Triglycerides 3698 H (0-150) mg/dl Cholesterol 723 H (0-200) mg/dl HDL Cholesterol 20 mg/dl Cholesterol/HDL Ratio 36.2 H (0-5) CBC 05/08/23 Range/Units 09:40 WBC 6.29 (4.8-10.8) K/ul RBC 4.89 (4.70-6.10) M/uL Hgb 15.0 (14.0-18.0) g/dl Hct 41.3 L (42.0-52.0) % Plt Count 193 (130-400) K/uL Neut # (Auto) 3.43 (1.40-6.50) K/uL Lymph # (Auto) 1.99 (1.20-3.40) K/uL [place] # (Auto) 0.66 H (0.11-0.59) K/uL Eos # (Auto) 0.15 (0.00-0.50) K/uL Baso # (Auto) 0.03 (0.00-0.20) K/uL Comprehensive Metabolic Panel 05/08/23 05/08/23 05/08/23 Range/Units 09:40 12:07 14:26 Sodium 135 L 137 (136-145) mmol/L Potassium TNP Cancelled 4.2 Chloride 98 104 (98-107) mmol/L Carbon Dioxide 20 L 19 L (21-32) mmol/L BUN 10 9 (6-23) mg/dl Creatinine 1.06 0.80 (0.6-1.4) mg/dl Glucose 401 H* 268 H (70-99(Fasting)) mg/dl Calcium 9.2 9.4 (8.6-10.3) mg/dl AST TNP Cancelled 9 L ALT 14 (7-52) U/L Alkaline Phosphatase 67 (34-104) U/L Total Protein 7.3 (6.0-8.3) gm/dl Albumin 4.1 (3.4-5.0) gm/dl 05/08/23 05/08/23 05/08/23 Range/Units 19:05 20:09 22:47 Sodium Cancelled 136 137 (136-145) mmol/L Potassium Cancelled 4.1 4.2 Chloride Cancelled 107 103 (98-107) mmol/L Carbon Dioxide Cancelled 16 L 19 L (21-32) mmol/L BUN Cancelled 9 9 (6-23) mg/dl Creatinine Cancelled 0.79 0.94 (0.6-1.4) mg/dl Glucose Cancelled 227 H 225 H (70-99(Fasting)) mg/dl Calcium Cancelled 9.1 8.8 (8.6-10.3) mg/dl AST ALT (7-52) U/L Alkaline Phosphatase (34-104) U/L Total Protein (6.0-8.3) gm/dl Albumin (3.4-5.0) gm/dl 05/09/23 05/09/23 Range/Units 03:03 06:59 Sodium 137 Cancelled (136-145) mmol/L Potassium 4.2 Cancelled Chloride 103 Cancelled (98-107) mmol/L Carbon Dioxide 19 L Cancelled (21-32) mmol/L BUN 9 Cancelled (6-23) mg/dl Creatinine 0.98 Cancelled (0.6-1.4) mg/dl Glucose 218 H Cancelled (70-99(Fasting)) mg/dl Calcium 8.7 Cancelled (8.6-10.3) mg/dl AST ALT (7-52) U/L Alkaline Phosphatase (34-104) U/L Total Protein (6.0-8.3) gm/dl Albumin (3.4-5.0) gm/dl Intake and Output 05/08/23 05/09/23 05/09/23 22:59 06:59 14:59 Intake Total 1000 / 3000 1000 / 1000 Balance 1000 / 3000 1000 / 1000 Intake: IV 1000 / 3000 1000 / 1000 Sodium Chlor 0.45% + 20Meq KCl 1000 / 1000 1000 / 1000 20 meq In 1,000 ml @ 100 mls/hr IV .Q10H [facility] Rx#:[id number] Oral 0 / 0 Other: # Unmeasured Voids 1 2 Weight 105.6 kg Weight Measurement Method Built in [facility] (1) Pancreatitis Acute pancreatitis complication: unspecified Chronicity: acute Pancreatitis type: unspecified pancreatitis type Qualified Code(s): K85.90 - Acute pancreatitis without necrosis or infection, unspecified
[2023-05-09] MEDS: DOCUSATE SODIUM 100 MG CAP PO SCH (08:52)
[2023-05-09] MEDS: ROSUVASTATIN CALCIUM 5 MG TAB PO SCH (08:53)
[2023-05-09] MEDS: LOSARTAN POTASSIUM 50 MG TAB PO SCH (08:53)
--- NOTE | 2023-05-09 09:01 | Pharmacy Report ---
Pharmacy Glycemic Short Note 2 - Date of Service May 09, 2023 - Glycemic Short BSG Results (Last 24 hours): 05/08/23 05/08/23 05/08/23 09:40 12:20 14:26 Glucose 401 H* 268 H POC Glucose 272 H 05/08/23 05/08/23 05/08/23 18:23 19:05 20:09 Glucose Cancelled 227 H POC Glucose 220 H 05/08/23 05/08/23 05/08/23 20:47 22:47 23:28 Glucose 225 H POC Glucose 200 H 208 H 05/09/23 05/09/23 05/09/23 03:03 06:00 07:38 Glucose 218 H POC Glucose 215 H 209 H OUTPATIENT ANTIDIABETIC REGIMEN: * N/A - non-compliance with various antidiabetic regimens due to insurance/affordability issues HbA1c: 15.5% (05/08/23) ASSESSMENT: * MW is a 47 year old male w/ reported longstanding history of type 2 DM (diagnosed at age 26) * Patient reports that he was previously on Novolog, but has not been taking since he lost his job in December 2022 * Also, reports trial of metformin, but that it was ineffective. Also, unable to afford empagliflozin. * HbA1c of 15.5% * Presented to ED on 05/07 w/ periumbilical abdominal pain * Found to have acute pancreatitis - currently NPO * Triglycerides of 3,698 mg/dL * Hyperglycemic thus far since time of admission and with mild DKA (anion gap 15, serum bicarbonate 19, VBG pH of 7.31) * Originally had planned to manage mild DKA with SC insulin, but insulin gtt preferred given concomitant hypertriglyceridemia * Will utilize DKA insulin gtt initially and plan to convert to hypertriglyceridemia insulin gtt set once gap is closed PLAN FOR INPATIENT GLYCEMIC CONTROL: * Insulin gtt until anion gap closed and hypertriglyceridemia resolved * Discussed with hospitalist, once anion gap < 12 x 2, plan will be to convert to insulin gtt for hypertriglyceridemia, which will be provider managed. Pharmacy will remain on consult to assist with transition to SC basal/bolus regimen once TGs below 500, but not for insulin gtt management. * Next BMP at 1730 and triglyceride check at 2200 * Basal insulin * Lantus 10 units SC x 1 this morning
[2023-05-09] MEDS ORDERED: STAT IV Infusion **Titration per Protocol STA (09:22)
[2023-05-09] MEDS ORDERED: PHARMACY GLYCEMIC MGMT CONSULT PRN (09:22)
[2023-05-09] MEDS ORDERED: PENDING 1/2NSS+20mEq KCL IVF SCH (09:30)
[2023-05-09] MEDS ORDERED: PENDING 1/2NSS+40mEq KCL IVF SCH (09:30)
[2023-05-09] MEDS ORDERED: PENDING D5 1/2NS+20mEq KCL IVF SCH (09:30)
[2023-05-09] MEDS ORDERED: PENDING D5 1/2NS+40mEq KCL IVF SCH (09:30)
[2023-05-09] MEDS: D5W AND 1/2NSS + 20MEQ KCL 20 MEQ/1,000 ML BAG IV SCH (10:56)
[2023-05-09] MEDS: INSULIN REGULAR 250 UNITS in SODIUM CHLORIDE 0.9% 247.5 ML IV SCH (10:57)
[2023-05-09 11:23] LABS: Calcium 9.4 mg/dl (8.6-10.3); Potassium 3.9 mmol/L (3.5-5.1)
[2023-05-09 11:29] LABS: BUN Creatinine Ratio 10.1 (10-20); Creatinine Clr Calc Pharmacy 148.1 ml/min; Est GFR (African American) 123.1 ml/min; Est GFR (Non-African American) 106.2 ml/min; Phosphorus 2.9 mg/dl (2.5-4.9)
[2023-05-09] MEDS: METOPROLOL SUCC 25MG EXT REL TAB PO SCH ×2 (11:51→21:04)
--- NOTE | 2023-05-09 13:36 | Hospitalist Progress Note ---
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 He is being managed for the following: DKA ISO uncontrolled T2DM Mild pancreatitis - likely induced by high TG level. Hypertriglyceridemia Patient stated he used to be on short and long-acting insulin which he quit taking since he lost his job December 2022 He established with the PCP in February 2023 and discussed further diabetic management when he was prescribed Jardiance but it was too expensive monthly cost for him to afford hence did not start on it. Of note, patient has history of ezetimibe-induced pancreatitis in the past per patient. Patient presented with abdominal pain, nausea, vomiting. Denies any fever or cough. Admitting: WBC WNL, UA negative for UTI, viral screen negative, CXR with no acute infectious findings. Urinary ketones positive, lipase upper limit of normal, TG at 3698. CTAP consistent with mild pancreatitis. Follow-up admitting blood culture to rule out infection as a precipitant for DKA. DKA likely precipitated in the setting of medication noncompliance. A1c 15.5 this admission. Patient was started on subcu insulin management at presentation, will transition to insulin drip 05/08. Discussed with glycemic pharmacy, once anion gap is closed x 2 subsequent tests, then plan to transition to hypertriglyceridemia protocol for insulin. Glycemic pharmacy on board for help with diabetic management. Once TG is below 500 mg/dl, transition to subcut insulin w/ diabetic pharmacy assistance in the line of diabetes Mx. wellness educator consult. N.p.o. for now, TG level every 12 hours, fasting lipid panel in AM. For TG Mx: Maintain insulin gtt beyond AG closure x 2 subsequent labs until TG level < 500 mg/dL ----->>" hypertriglyceridemia induced" protocol. If blood glucose level less than 200 Mg per deciliter at the time, definitely use 5% dextrose containing IV fluid, look at electrolytes replacement as well. Monitor BMP q4H. Monitor serum glucose every hour for the duration of insulin gtt then q2h once bridged for 1 day. Trend TG level q12H. Repeat lipid profile panel when able. Limit dietary fat when PO initiated. Plasmapheresis not indicated for the time being due to lack of significant "worrisome features" -hypocalcemia, lactic acidosis, SIRS positive, worsening organ dysfunction or multiorgan failure. Insulin gtt will be stopped when TG level is < 500 mg/dL or AG closed x 2 whichever occurs later. In the correction, gemfibrozil or fenofibrate therapy, encourage weight loss, low-fat diet, strict glycemic control with assistance of glycemic pharmacy c/w fluid hydration, antiemetics, pain control Abnormal CXR: Admitting CXR with mild proximal left tracheal deviation. This could be positional or due to right thyroid goiter. Nonemergent thyroid ultrasound as an outpatient. Sinus tachycardia Questionable history of CHF and Cardiomyopathy? HTN HLD Heart failure with reduced ejection fraction Admitting EKG with sinus tachycardia likely secondary to acute issues. History concerning for CHF and cardiomyopathy, echo this admission with EF of 45 to 50% with borderline diffuse hypokinesis. Cardiology on board, GDMT being titrated. Continue aspirin and statin. Follow-up with cardiology as an outpatient, likely outpatient stress test and cardiac MRI. Continue telemetry monitoring, patient with no chest pain. DVT ppx: teds, scds Lines: 2 PIV CODE: FULL Dispo: From home, likely to remain in the hospital x 1-2 days Admission and Anticipated Discharge Date Admission Date: May 08, 2023 Subjective Patient was seen and examined at bedside. Patient was lying in bed, on room air, NAD, resting comfortably. Patient reports improvement in his belly pain, denies any nausea or vomiting, denies any diarrhea. Denies fever, cough or chest pain. Patient was explained that his triglyceride levels are high and most likely this might be the cause for his pancreatitis. He was explained that he will need inpatient treatment with insulin drip for this and the risks would be hypoglycemia with we will be watching closely/managing accordingly. He was also explained the need to initiate fenofibrate therapy once triglyceride levels are lowered down to acceptable level. He was also advised to avoid fat containing foods in future to keep triglyceride level under check. He was also made aware to have close follow-up with PCP for long-term management. He was offered if I needed to call his to give update, he deferred and stated he will himself call her to give update. He voiced understanding and was agreeable to plan of care. Physical Exam Physical Exam: GENERAL: Alert and oriented x3. NAD, on RA. HEENT: No pallor, no icterus. Pupils equal, round and reactive to light. Oral mucosa moist. NECK: No JVD, no neck masses. HEART: S1 and S2 heard. Regular rate and rhythm. No murmur, no gallop. RESPIRATORY SYSTEM: Normal AP diameter. No accessory muscle use. No wheezing, no crackles. ABDOMEN: Soft, bowel sounds present, nontender, no distention. CENTRAL NERVOUS SYSTEM: No facial droop. Speech is clear. Obeys simple com mands. Moves extremities. EXTREMITIES: No edema, no erythema seen. Results & Data Results & Data Vital Signs (Past 12 Hours) Vital Signs Pulse Pulse Resp BP Pulse Ox Pulse Ox O2 Del Method 05/09/23 10:25 89 16 143/95 H 96 Room Air 05/09/23 08:00 93 05/09/23 07:45 103 H 05/09/23 05:34 101 H 17 98 Room Air 05/09/23 03:00 103 H 18 144/78 H 95 Room Air O2 Del Method 05/09/23 10:25 05/09/23 08:00 Room Air 05/09/23 07:45 05/09/23 05:34 05/09/23 03:00 (1) Pancreatitis Acute pancreatitis complication: unspecified Chronicity: acute Pancreatitis type: unspecified pancreatitis type Qualified Code(s): K85.90 - Acute pancreatitis without necrosis or infection, unspecified (3) DM II (diabetes mellitus, type II), controlled Diabetes mellitus complication status: with unspecified complications Diabetes mellitus correction insulin use: unspecified intermodal customer service insulin use status Qualified Code(s): E11.8 - Type 2 diabetes mellitus with unspecified complications
[2023-05-09 13:40] LABS: Calcium 9.3 mg/dl (8.6-10.3); Potassium 3.6 mmol/L (3.5-5.1)
[2023-05-09 13:45] LABS: BUN Creatinine Ratio 11.7 (10-20); Creatinine Clr Calc Pharmacy 151.9 ml/min; Est GFR (African American) 124.4 ml/min; Est GFR (Non-African American) 107.3 ml/min; Phosphorus 2.8 mg/dl (2.5-4.9)
[2023-05-09] MEDS: INSULIN ASPART PER UNIT CHARGE SC SCH ×2 (13:57→21:03)
--- NOTE | 2023-05-09 15:56 | Electrocardiogram Report ---
Test Reason : Blood Pressure : / mmHG Vent. Rate : 090 BPM Atrial Rate : 090 BPM P-R Int : 144 ms QRS Dur : 096 ms QT Int : 366 ms P-R-T Axes : 035 -15 010 degrees QTc Int : 447 ms Normal sinus rhythm Minimal voltage criteria for LVH, may be normal variant Poor R wave progression, consider anterior TX vs. lead placement vs. LVH Nonspecific T wave abnormality Abnormal ECG When compared with ECG of 08-MAY-2023 15:18, Nonspecific T wave abnormality, improved in Inferior leads Confirmed by Emil Porter ([id number]) on 05/09/2023 3:56:39 PM Referred By: REFERRED SELF Confirmed By:Matias Porter
[2023-05-09 18:07] LABS: Calcium 8.9 mg/dl (8.6-10.3); Potassium 3.4 mmol/L (3.5-5.1)
[2023-05-09 18:12] LABS: BUN Creatinine Ratio 11.7 (10-20); Creatinine Clr Calc Pharmacy 151.9 ml/min; Est GFR (African American) 124.4 ml/min; Est GFR (Non-African American) 107.3 ml/min; Phosphorus 2.9 mg/dl (2.5-4.9)
[2023-05-09] MEDS ORDERED: DEXTROSE 50% 50 ML SYRINGE IV PRN (20:05)
[2023-05-09] MEDS ORDERED: INSULIN REGULAR 250 UNITS in SODIUM CHLORIDE 0.9% 247.5 ML IV SCH (20:15)
[2023-05-09] MEDS: DEXTROSE 10% IV SCH (20:51)
[2023-05-09] MEDS: SODI CHLOR IV SCH (20:51)
[2023-05-09] MEDS: POTASSIUM CHLORIDE IV SCH (20:51)
[2023-05-09 23:19] LABS: BUN Creatinine Ratio 13.3 (10-20); Calcium 8.7 mg/dl (8.6-10.3); Est GFR (African American) 125.7 ml/min; Est GFR (Non-African American) 108.5 ml/min; Potassium 3.1 mmol/L (3.5-5.1)
[2023-05-10] MEDS: POTASSIUM CHLORIDE CRTAB 20 MEQ TABCR PO STA ×2 (01:06→06:46)
[2023-05-10] MEDS ORDERED: DEXTROSE 50% 50 ML SYRINGE IV PRN ×2 (01:42→14:00)
[2023-05-10] MEDS: INSULIN REGULAR 250 UNITS in SODIUM CHLORIDE 0.9% 247.5 ML IV SCH (02:14)
[2023-05-10 03:59] LABS: Anion Gap 9 (3-11); Calcium 8.8 mg/dl (8.6-10.3); Carbon Dioxide 21 mmol/L (21-32); Chloride 104 mmol/L (98-107); Potassium 3.1 mmol/L (3.5-5.1); Sodium 134 mmol/L (136-145)
[2023-05-10 04:05] LABS: BUN Creatinine Ratio 12.9 (10-20); Blood Urea Nitrogen 9 mg/dl (6-23); Creatinine Clr Calc Pharmacy 167.1 ml/min; Est GFR (African American) 129.3 ml/min; Est GFR (Non-African American) 111.6 ml/min; Glucose 190 mg/dl (70-99(Fasting))
[2023-05-10 04:45] LABS: Chol HDL Ratio 32.8 (0-5); Cholesterol 624 mg/dl (0-200); HDL Cholesterol 19 mg/dl; Triglycerides 2029 mg/dl (0-150)
--- NOTE | 2023-05-10 07:30 | Cardiology Progress Note ---
Date of Service May 10, 2023 Assessment & Plan (1) Pancreatitis: (2) Type 2 diabetes mellitus: (3) DKA (diabetic ketoacidosis): (4) Acute on chronic HFrEF (heart failure with reduced ejection fraction): (5) Sinus tachycardia: Plan IMPRESSION: 47 year old male admitted with acute pancreatitis and DKA. History of HFrEF with EF as low at 30% (2019)--resolved per the patient. Echo this admission showed an EF of 45 to 50%. PLAN: Pancreatitis/DKA: TG level 3698. Metabolic acidosis with DKA A1c 15.5% 1. Will defer to primary service. Spoke with Dr. Beck-- On insulin gtt. Fluid hydration, antiemetics, pain control. HFrEF: Patient appear euvolemic on exam. NYHA class 1. HR improving with beta rosalio. 1. Optimize GDMT: -Increase metoprolol succinate to 50 mg twice daily -Continue Losartan 100 mg daily -Future considerations of adding spironolactone +/- Jardiance. 2. Continue aspirin and statin as ordered. Triglyceride level should improve with blood glucose management. 3. Will need to obtain records from prior cardiology care in [place]. 4. Consider outpatient stress testing and cardiac MRI once acute illness with pancreatitis is managed. Case discussed with Dr. Matamoros. Will follow. I spent a total of 30 minutes on the date of service in preparation, delivery, and documentation of the care provided to the patient excluding any time spent in the performance of separately billed services. THOMAS Hernandez Department of Cardiology, [facility] This chart was completed in part utilizing Speech Voice Recognition Software. Grammatical errors, random word insertions, pronoun errors, and incomplete sentences are an occasional consequence of this system due to software limitations, ambient noise, and hardware issues. Any formal questions or concerns about the content, text, or information contained within the body of this dictation should be directly addressed to the provider for clarification. Admission and Anticipated Discharge Date Admission Date: May 08, 2023 Supervising Physician Co-Signing Physician Notes I have reviewed the advance practitioner's documentation, and I agree with, and take responsibility for the plan of care. 47-year-old male with DKA, hypertriglyceridemia, and acute pancreatitis. Resting 2D transthoracic echocardiogram demonstrating mild LV systolic function with a inferoseptal wall motion abnormality. History of cardiomyopathy with ejection fraction as low as 30% dating back to 2019. Off all cardiac medications for more than 4 years. Feeling better today. Diet advanced to clear liquids per internal medicine. Remains on IV insulin infusion. PE: Hypertensive. Borderline elevated heart rate. General: NAD, awake alert and oriented x 3. Heart: Regular rhythm, normal S1-S2. No murmur. Lungs: Clear bilateral, no rales, rhonchi, wheeze. Abdomen: Mild tenderness, no rebound or guarding. Hypoactive bowel sounds. Extremities: No edema. A/P: 47-year-old male with 2D echocardiographic evidence of mild LV systolic dysfunction with moderate hypokinesis of the inferoseptum and base inferior wall. Regional wall motion abnormality concerning for chronic ischemic heart disease, however, patient denies history of CAD with normal cardiac catheterization in 2020. Chronicity of LV dysfunction and wall motion abnormality unknown. Denies any recent anginal symptoms. 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 Olivas in [place], [place]. Optimize evidence-based medical therapies. Titrate metoprolol XL to 50 mg twice daily. Continue losartan 100 mg daily. Consider addition of fenofibrate for hypertriglyceridemia. Endocrinology input appreciated. Outpatient exercise stress testing and cardiac MRI when patient has recovered from pancreatitis. Subjective 47-year-old male presented to the emergency department with abdominal pain and pancreatitis. Resting 2D transthoracic echocardiogram demonstrating mild LV systolic function with a inferoseptal wall motion abnormality. Chronicity of LV dysfunction and wall motion abnormality unknown. Denies any recent anginal symptoms. 05/09/2023: Goal-directed medical therapy initiated: Added metoprolol succinate 25 mg twice daily and losartan 100 mg daily Treatment of pancreatitis and DKA per primary service. Patient started on insulin drip. 05/10/2023: Telemetry: SR 90s Labs: Stable renal function. Potassium low at 3.1--Supplemented with KCl. Mild hyponatremia, 134. Blood cultures pending. Upon entrance into the room patient resting in bed. No acute concerns. No chest pain, shortness of breath, palpitations, dizziness, syncope or near syncope. No orthopnea, PND, or increased lower extremity edema. No fever, chills, cough, hematochezia, melena, or hemoptysis. Review of Systems Review of Systems: All systems reviewed & are unremarkable except as noted in HPI & below Physical Exam Constitutional: WD/WN, vitals as above no acute distress Eyes: PERRL, conjunctivae normal, anicteric sclerae ENMT: external ear and nose normal, oropharynx normal Neck: normal visual inspection and trachea midline Respiratory: normal respiratory effort, lungs clear to auscultation Cardiovascular: RRR, no murmur, no edema Rate/Rhythm: regular rhythm and + tachycardic Heart Sounds: normal S1 and normal S2; no murmur Vessels: no JVD Extremities: no edema Gastrointestinal (Abdomen): normal bowel sounds, soft, nontender, no hepatosplenomegaly Skin: no rashes, warm and dry Neurologic: PERRL, EOMI, accommodation nl, no face palsy, no dysarthria Psychiatric: A+Ox3, euthymic affect Results & Data Vital Signs (Past 12 Hours) Vital Signs Temp Pulse Pulse Resp BP Pulse Ox O2 Del Method 05/10/23 04:30 36.6 C 92 H 18 123/79 96 Room Air 05/10/23 03:05 Room Air 05/10/23 01:03 85 16 136/87 94 Room Air 05/09/23 23:16 90 05/09/23 20:55 104 H 20 117/74 05/09/23 19:50 77 20 130/83 97 Room Air Laboratory Results Lipids 05/09/23 05/09/23 05/09/23 Range/Units 09:35 11:38 22:27 Triglycerides Cancelled 2802 H Cancelled Cholesterol (0-200) mg/dl HDL Cholesterol mg/dl Cholesterol/HDL Ratio (0-5) 05/09/23 05/10/23 Range/Units 22:27 03:26 Triglycerides 2140 H 2029 H Cholesterol 624 H (0-200) mg/dl HDL Cholesterol 19 mg/dl Cholesterol/HDL Ratio 32.8 H (0-5) Comprehensive Metabolic Panel 05/09/23 05/09/23 05/09/23 Range/Units 09:35 10:27 12:47 Sodium Cancelled 136 137 Potassium Cancelled 3.9 3.6 Chloride Cancelled 103 104 Carbon Dioxide Cancelled 16 L 18 L BUN Cancelled 8 9 Creatinine Cancelled 0.79 0.77 Glucose Cancelled 200 H 191 H Calcium Cancelled 9.4 9.3 05/09/23 05/09/23 05/10/23 Range/Units 17:19 22:27 03:26 Sodium 138 135 L 134 L Potassium 3.4 L 3.1 L Chloride 105 104 Carbon Dioxide 23 19 L BUN 9 10 Creatinine 0.77 0.75 Glucose 113 H 270 H Calcium 8.9 8.7 05/10/23 05/10/23 05/10/23 Range/Units 03:26 03:26 03:26 Sodium Cancelled Potassium 3.1 L Cancelled Chloride 104 Cancelled Carbon Dioxide 21 BUN Creatinine Glucose Calcium 05/10/23 05/10/23 05/10/23 Range/Units 03:26 03:26 03:26 Sodium Potassium Chloride Carbon Dioxide Cancelled BUN 9 Cancelled Creatinine 0.70 Cancelled Glucose 190 H Calcium 05/10/23 05/10/23 05/10/23 Range/Units 03:26 03:26 09:33 Sodium 137 Potassium 3.7 Chloride 105 Carbon Dioxide 24 BUN 8 Creatinine 0.83 Glucose Cancelled 193 H Calcium 8.8 Cancelled 9.2 Intake and Output 05/09/23 05/10/23 05/10/23 22:59 06:59 14:59 Intake Total 1027.609 / 3131.992 1066.383 / 3131.992 Balance 1027.609 / 3131.992 1066.383 / 3131.992 Intake: IV 1027.609 / 3081.992 1016.383 / 3081.992 D5w and 1/2Nss + 20Meq KCl 20 990.000 / 990.000 meq In 1,000 ml @ 100 mls/hr IV .Q10H MAXINE Rx#:[id number] Insulin Regular 250 units In 37.609 / 103.659 28.05 / 103.659 Sodium Chloride 0.9% 247.5 ml @ 4.5 UNITS/HR 4.5 mls/hr IV . Q24H MAXINE Rx#:[id number] Sodi Chlor 2.5MEQ/ml 14.6% 155 988.333 / 988.333 meq Potassium Chloride 20 meq In Dextrose 10% 1,000 ml @ 100 mls/hr IV .[id number] MAXINE Rx#: [id number] Oral 50 / 50 Other: # Unmeasured Voids 1 (1) Pancreatitis Acute pancreatitis complication: unspecified Chronicity: acute Pancreatitis type: unspecified pancreatitis type Qualified Code(s): K85.90 - Acute pancreatitis without necrosis or infection, unspecified
[2023-05-10 10:25] LABS: Calcium 9.2 mg/dl (8.6-10.3); Potassium 3.7 mmol/L (3.5-5.1)
[2023-05-10 10:30] LABS: BUN Creatinine Ratio 9.6 (10-20); Est GFR (African American) 120.6 ml/min
[2023-05-10] MEDS: METOPROLOL SUCC 50MG EXT REL TAB PO SCH (10:53)
[2023-05-10] MEDS ORDERED: CARBOHYDRATES FOR HYPOGLYCEMIA PO PRN (14:00)
[2023-05-10] MEDS ORDERED: GLUCOSE 10 TAB/TUBE PO PRN (14:00)
[2023-05-10] MEDS ORDERED: GLUCAGON FOR INJ 1 MG VIAL IM PRN (14:00)
[2023-05-10] MEDS ORDERED: GLUCOSE 40% GEL 15 GM TUBE PO PRN (14:00)
--- NOTE | 2023-05-10 14:08 | Pharmacy Report ---
Pharmacy Glycemic Short Note 2 - Date of Service May 10, 2023 - Glycemic Short BSG Results (Last 24 hours): 05/09/23 05/09/23 05/09/23 14:42 15:46 16:49 Glucose POC Glucose 156 H 128 H 129 H 05/09/23 05/09/23 05/09/23 17:19 17:55 18:37 Glucose 113 H POC Glucose 104 H 100 H 05/09/23 05/09/23 05/09/23 19:49 20:58 22:04 Glucose POC Glucose 99 222 H 254 H 05/09/23 05/09/23 05/10/23 22:27 23:03 00:10 Glucose 270 H POC Glucose 243 H 230 H 05/10/23 05/10/23 05/10/23 01:07 02:13 03:02 Glucose POC Glucose 238 H 218 H 207 H 05/10/23 05/10/23 05/10/23 03:26 03:26 04:07 Glucose 190 H Cancelled POC Glucose 174 H 05/10/23 05/10/23 05/10/23 05:00 06:01 07:17 Glucose POC Glucose 144 H 122 H 87 05/10/23 05/10/23 05/10/23 08:26 09:05 09:33 Glucose 193 H POC Glucose 180 H 199 H 05/10/23 05/10/23 05/10/23 10:05 11:00 12:00 Glucose POC Glucose 175 H 139 H 111 H 05/10/23 05/10/23 13:39 13:55 Glucose POC Glucose 147 H 125 H OUTPATIENT ANTIDIABETIC REGIMEN: * N/A - non-compliance with various antidiabetic regimens due to insurance/affordability issues HbA1c: 15.5% (05/08/23) ASSESSMENT: 05/09 * Pharmacy reconsulted today as DKA has resolved and planning for insulin drip for hypertriglyceridemia to also stop this afternoon. Provider reaching out to pharmacy to help with transition of drip to SQ insulin * Liquid diet to resume this afternoon - Discussed with RN and patient feeling okay today, but she feels he will likely not be taking too much PO intake. He didn't do well with diet the other day she reports. Plan to be more conservative with initiation of basal and will begin at 0.2 units/kg of basal. Will give now so it overlaps with drip. 05/08 * MW is a 47 year old male w/ reported longstanding history of type 2 DM (diagnosed at age 26) * Patient reports that he was previously on Novolog, but has not been taking since he lost his job in December 2022 * Also, reports trial of metformin, but that it was ineffective. Also, unable to afford empagliflozin. * HbA1c of 15.5% * Presented to ED on 05/07 w/ periumbilical abdominal pain * Found to have acute pancreatitis - currently NPO * Triglycerides of 3,698 mg/dL * Hyperglycemic thus far since time of admission and with mild DKA (anion gap 15, serum bicarbonate 19, VBG pH of 7.31) * Originally had planned to manage mild DKA with SC insulin, but insulin gtt preferred given concomitant hypertriglyceridemia * Will utilize DKA insulin gtt initially and plan to convert to hypertriglyceridemia insulin gtt set once gap is closed PLAN FOR INPATIENT GLYCEMIC CONTROL: * Insulin drip to stop at ~1500 per provider request * Lantus 20 units x 1 now * Novolog - 110-140 / CF 15 / CR 5
--- NOTE | 2023-05-10 14:28 | Hospitalist Progress Note ---
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 He is being managed for the following: DKA ISO uncontrolled T2DM Mild pancreatitis - likely induced by high TG level. Hypertriglyceridemia Patient stated he used to be on short and long-acting insulin which he quit taking since he lost his job December 2022 He established with the PCP in February 2023 and discussed further diabetic management when he was prescribed Jardiance but it was too expensive monthly cost for him to afford hence did not start on it. Of note, patient has history of ezetimibe-induced pancreatitis in the past per patient. Patient presented with abdominal pain, nausea, vomiting. Denies any fever or cough. Admitting: WBC WNL, UA negative for UTI, viral screen negative, CXR with no acute infectious findings. Urinary ketones positive, lipase upper limit of normal, TG at 3698. CTAP consistent with mild pancreatitis. Follow-up admitting blood culture to rule out infection as a precipitant for DKA --so far no growth. DKA likely precipitated in the setting of medication noncompliance. A1c 15.5 this admission. Discussed with endocrinology 05/09, plan to discharge patient on insulin only at this point, follow-up with endocrinology within a month time. Patient currently on insulin gtt. for triglyceridemia induced pancreatitis management, discussed with endocrinology 05/09, transitioning to subcu insulin today. Continue with full liquid/CC2/low-fat diet while on subcu insulin, will monitor TG every 12 hours, monitor patient clinically. Glycemic pharmacy on board for management of diabetes. certified adaptive physical educator. Once TG level less than 500, consider gemfibrozil or fenofibrate therapy. E ncourage weight loss/low-fat diet/strict glycemic control as a part of long-term management of hypertriglyceridemia. Continue with fluid hydration, antiemetics, pain control. Abnormal CXR: Admitting CXR with mild proximal left tracheal deviation. This could be positional or due to right thyroid goiter. Nonemergent thyroid ultrasound as an outpatient. Sinus tachycardia Questionable history of CHF and Cardiomyopathy? HTN HLD Heart failure with reduced ejection fraction x chronic: not in exacerbation. Admitting EKG with sinus tachycardia likely secondary to acute issues. History concerning for CHF and cardiomyopathy, echo this admission with EF of 45 to 50% with borderline diffuse hypokinesis. Cardiology on board, GDMT being titrated. Continue aspirin and statin. Follow-up with cardiology as an outpatient, likely outpatient stress test and cardiac MRI. Continue telemetry monitoring, patient with no chest pain. DVT ppx: teds, scds Lines: 2 PIV CODE: FULL Dispo: From home, likely to remain in the hospital x 2-3 days Admission and Anticipated Discharge Date Admission Date: May 08, 2023 Subjective Patient was seen and examined at bedside. Patient was lying in bed, on room air, NAD, resting comfortably. Patient denies any nausea, vomiting, abdominal pain. Patient reports moving bowels okay. Patient has been started on clear liquid diet since last evening, no GI complaints. Patient denies any febrile illness or headache or dizziness or chest pain. Discussed with endocrinology today regarding insulin drip and management of hypertriglyceridemia induced pancreatitis. Since his pancreatitis is clinically improved, his DKA has improved. Per our discussion, he can be advanced on diet and insulin drip can be transitioned to subcutaneous insulin in the line of management for diabetes itself and continue to monitor triglyceride level/symptoms. Upon discharge he will be discharged on insulin only at this point to not over complicate his management, endocrinology office will follow him within 1 month time of discharge. Patient has been made aware of the same. Patient has been encouraged to communicate with endocrinology office upon discharge. Plan of care was extensively discussed with the patient himself, diabetic pharmacist and primary RN. Plan is to transition his insulin drip to subcutaneous insulin around 3 PM, change IVF with D10 to IVF with D5 about the same time, advance clear liquid to full liquid/CC2/Low fat diet about the same time. Diabetic pharmacy will be managing his diabetes/insulin coverage. Additionally these were discussed with primary RN and patient himself: Will continue to monitor triglyceride every 12 hours and continue to monitor the patient clinically. If clinical symptoms are worsening or triglyceride levels are uptrending, the patient might need to go back n.p.o./IV hydration/insulin drip. Patient and primary RN is aware. Patient is agreeable to the plan of care. He was again offered if I needed to call his to give update, he deferred and stated he will himself call her to give update. He voiced understanding and was agreeable to plan of care. He stated he updated his yesterday. Physical Exam Physical Exam: GENERAL: Alert and oriented x3. NAD, on RA. HEENT: No pallor, no icterus. Pupils equal, round and reactive to light. Oral mucosa moist. NECK: No JVD, no neck masses. HEART: S1 and S2 heard. Regular rate and rhythm. No murmur, no gallop. RESPIRATORY SYSTEM: Normal AP diameter. No accessory muscle use. No wheezing, no crackles. ABDOMEN: Soft, bowel sounds present, nontender, no distention. CENTRAL NERVOUS SYSTEM: No facial droop. Speech is clear. Obeys simple commands. Moves extremities. EXTREMITIES: No edema, no erythema seen. Results & Data Results & Data Vital Signs (Past 12 Hours) Vital Signs Temp Pulse Pulse Resp BP Pulse Ox O2 Del Method 05/10/23 10:42 36.6 C 92 H 20 155/83 H 96 Room Air 05/10/23 08:05 91 H 05/10/23 08:00 05/10/23 07:17 36.5 C 84 19 131/80 97 Room Air 05/10/23 04:30 36.6 C 92 H 18 123/79 96 Room Air 05/10/23 03:05 Room Air O2 Del Method 05/10/23 10:42 05/10/23 08:05 05/10/23 08:00 Room Air 05/10/23 07:17 05/10/23 04:30 05/10/23 03:05 (1) Pancreatitis Acute pancreatitis complication: unspecified Chronicity: acute Pancreatitis type: unspecified pancreatitis type Qualified Code(s): K85.90 - Acute pancreatitis without necrosis or infection, unspecified (3) DM II (diabetes mellitus, type II), controlled Diabetes mellitus complication status: with unspecified complications Diabetes mellitus custodial insulin use: unspecified custodial insulin use status Qualified Code(s): E11.8 - Type 2 diabetes mellitus with unspecified complications
[2023-05-10] MEDS: LANTUS PER UNIT CHARGE SC ONE (14:41)
[2023-05-10 14:49] LABS: Calcium 9.6 mg/dl (8.6-10.3); Potassium 4.2 mmol/L (3.5-5.1)
[2023-05-10 14:51] LABS: Creatinine Clr Calc Pharmacy 146.2 ml/min; Est GFR (African American) 122.4 ml/min; Est GFR (Non-African American) 105.6 ml/min
[2023-05-10] MEDS ORDERED: PHARMACY GLYCEMIC MGMT CONSULT PRN (15:00)
[2023-05-10] MEDS: D5W AND 1/2NSS + 20MEQ KCL 20 MEQ/1,000 ML BAG IV SCH (15:13)
[2023-05-10] MEDS ORDERED: LANTUS PER UNIT CHARGE SQ SCH (17:00)
[2023-05-10] MEDS: INSULIN ASPART PER UNIT CHARGE SC SCH (18:10)
[2023-05-10 18:56] LABS: Potassium 3.9 mmol/L (3.5-5.1)
[2023-05-10 19:02] LABS: BUN Creatinine Ratio 9.9 (10-20); Creatinine Clr Calc Pharmacy 164.8 ml/min; Est GFR (African American) 128.6 ml/min
[2023-05-11 00:20] LABS: BUN Creatinine Ratio 7.8 (10-20); Calcium 8.6 mg/dl (8.6-10.3); Creatinine Clr Calc Pharmacy 151.9 ml/min; Est GFR (African American) 124.4 ml/min; Est GFR (Non-African American) 107.3 ml/min
[2023-05-11] MEDS: INSULIN ASPART PER UNIT CHARGE SC SCH (01:22)
--- NOTE | 2023-05-11 07:15 | Cardiology Progress Note ---
Date of Service May 11, 2023 Assessment & Plan (1) Pancreatitis: (2) Type 2 diabetes mellitus: (3) DKA (diabetic ketoacidosis): (4) Acute on chronic HFrEF (heart failure with reduced ejection fraction): (5) Sinus tachycardia: Plan IMPRESSION: 47 year old male admitted with acute pancreatitis and DKA. History of HFrEF with EF as low at 30% (2019)--resolved per the patient. Echo this admission showed an EF of 45 to 50%. PLAN: Pancreatitis/DKA: TG level 3698>>trending down. 1783 this am. Metabolic acidosis with DKA A1c 15.5% Hx of ezetimibe-induced pancreatitis 1. Will defer to primary service/Endocrine. Spoke with Dr. Beck-- Insulin gtt dc'd now on SQ. Fluid hydration, antiemetics, pain control. HFrEF: Patient appear euvolemic on exam. NYHA class 1. HR improving with beta rosalio. 1. Optimize GDMT: -Increase metoprolol succinate to 50 mg twice daily -Continue Losartan 100 mg daily -Future considerations of adding spironolactone +/- Jardiance as an outpatient. 2. Continue aspirin and statin as ordered. Triglyceride level should improve with blood glucose management. Consider addition of fenofibrate for hypertriglyceridemia. 3. Will need to obtain records from prior cardiology care in [place]. 4. Consider outpatient stress testing and cardiac MRI once acute illness with pancreatitis is managed. Case discussed with Dr. Matamoros. No further recommendations from a cardiology standpoint. Please reach out for any further questions. I spent a total of 30 minutes on the date of service in preparation, delivery, and documentation of the care provided to the patient excluding any time spent in the performance of separately billed services. THOMAS Hernandez Department of Cardiology, [facility] This chart was completed in part utilizing Speech Voice Recognition Software. Grammatical errors, random word insertions, pronoun errors, and incomplete sentences are an occasional consequence of this system due to software limitations, ambient noise, and hardware issues. Any formal questions or concerns about the content, text, or information contained within the body of this dictation should be directly addressed to the provider for clarification. Admission and Anticipated Discharge Date Admission Date: May 08, 2023 Supervising Physician Co-Signing Physician Notes I have reviewed the advance practitioner's documentation, and I agree with, and take responsibility for the plan of care. 47-year-old male with DKA, hypertriglyceridemia, and acute pancreatitis. Resting 2D transthoracic echocardiogram demonstrating mild LV systolic function with a inferoseptal wall motion abnormality. History of cardiomyopathy with ejection fraction as low as 30% dating back to 2019. Off all cardiac medications for more than 4 years prior to current hospitalization. Feeling better today. Diet advanced to clear liquids per internal medicine. Remains on IV insulin infusion. PE: Hypertensive. Borderline elevated heart rate. General: NAD, awake alert and oriented x 3. Heart: Regular rhythm, normal S1-S2. No murmur. Lungs: Clear bilateral, no rales, rhonchi, wheeze. Abdomen: Mild tenderness, no rebound or guarding. Hypoactive bowel sounds. Extremities: No edema. A/P: 47-year-old male with 2D echocardiographic evidence of mild LV systolic dysfunction with moderate hypokinesis of the inferoseptum and base inferior wall. Regional wall motion abnormality concerning for chronic ischemic heart disease, however, patient denies history of CAD with normal cardiac catheterization in 2019. Chronicity of LV dysfunction and wall motion abnormality unknown. Denies any recent anginal symptoms. Awaiting record from prior tapper operator, Dr. Olivas in [place], [place]. Continue current medications including Toprol-XL 50 mg twice daily and losartan 100 mg daily. Outpatient exercise stress testing and cardiac MRI when patient has recovered from pancreatitis. Cardiology will sign off. Please call with additional concerns/questions. I spent a total of 20 minutes on the date of service in preparation, delivery, and documentation of the care provided to this patient, excluding any time spent in the performance of separately billed services. Subjective 47-year-old male presented to the emergency department with abdominal pain and pancreatitis. Resting 2D transthoracic echocardiogram demonstrating mild LV systolic function with a inferoseptal wall motion abnormality. Chronicity of LV dysfunction and wall motion abnormality unknown. Denies any recent anginal symptoms. 05/09/2023: Goal-directed medical therapy initiated: Added metoprolol succinate 25 mg twice daily and losartan 100 mg daily Treatment of pancreatitis and DKA per primary service. Patient started on insulin drip. 05/10/2023: Telemetry: SR 90s, metoprolol succinate increased to 50 mg twice daily Insulin gtt dc'd in favor of Insulin SQ. 05/11/2023: Tele: SR 70-90s Upon entrance into the room patient resting in bed. No acute concerns. No chest pain, shortness of breath, palpitations, dizziness, syncope or near syncope. No orthopnea, PND, or increased lower extremity edema. No fever, chills, cough, hematochezia, melena, or hemoptysis. Review of Systems Review of Systems: All systems reviewed & are unremarkable except as noted in HPI & below Physical Exam Constitutional: WD/WN, vitals as above no acute distress Eyes: PERRL, conjunctivae normal, anicteric sclerae ENMT: external ear and nose normal, oropharynx normal Neck: normal visual inspection and trachea midline Respiratory: normal respiratory effort, lungs clear to auscultation Cardiovascular: RRR, no murmur, no edema Rate/Rhythm: regular rhythm and + tachycardic Heart Sounds: normal S1 and normal S2; no murmur Vessels: no JVD Extremities: no edema Gastrointestinal (Abdomen): normal bowel sounds, soft, nontender, no hepatosplenomegaly Skin: no rashes, warm and dry Neurologic: PERRL, EOMI, accommodation nl, no face palsy, no dysarthria Psychiatric: A+Ox3, euthymic affect Results & Data Vital Signs (Past 12 Hours) Vital Signs Temp Pulse Resp BP Pulse Ox Pulse Ox O2 Del Method 05/11/23 03:00 36.4 C L 81 18 138/90 99 Room Air 05/11/23 00:00 97 05/10/23 22:43 36.5 C 83 18 152/99 H 97 Room Air 05/10/23 19:20 36.6 C 87 18 145/91 H 96 Room Air O2 Del Method 05/11/23 03:00 05/11/23 00:00 Room Air 05/10/23 22:43 05/10/23 19:20 Laboratory Results Lipids 05/10/23 05/11/23 Range/Units 18:09 08:47 Triglycerides 1737 H 1783 H (0-150) mg/dl Comprehensive Metabolic Panel 05/10/23 05/10/23 05/10/23 Range/Units 14:03 18:09 22:26 Sodium 140 133 L 134 L (136-145) mmol/L Potassium 4.2 3.9 4.0 (3.5-5.1) mmol/L Chloride 107 102 103 (98-107) mmol/L Carbon Dioxide 24 22 24 (21-32) mmol/L BUN 8 7 6 (6-23) mg/dl Creatinine 0.80 0.71 0.77 (0.6-1.4) mg/dl Glucose 104 H 246 H 201 H (70-99(Fasting)) mg/dl Calcium 9.6 9.0 8.6 (8.6-10.3) mg/dl Intake and Output 05/10/23 05/11/23 05/11/23 22:59 06:59 14:59 Intake Total 2680.603 / 4180.603 1200 / 4180.603 Balance 2680.603 / 4180.603 1200 / 4180.603 Intake: IV 980.603 / 8010.288 4684 / 1979.603 D5w and 1/2Nss + 20Meq KCl 20 1000 / 1000 meq In 1,000 ml @ 100 mls/hr IV .Q10H MAXINE Rx#:[id number] Insulin Regular 250 units In 137.27 / 137.27 Sodium Chloride 0.9% 247.5 ml @ 0.1 UNITS/KG/HR 10.56 mls/hr IV .[id number] MAXINE Rx#:[id number] Sodi Chlor 2.5MEQ/ml 14.6% 155 843.333 / 843.333 meq Potassium Chloride 20 meq In Dextrose 10% 1,000 ml @ 100 mls/hr IV .[id number] MAXINE Rx#: [id number] Oral 1700 / 2200 200 / 2200 Other: # Unmeasured Voids 2 1 (1) Pancreatitis Acute pancreatitis complication: unspecified Chronicity: acute Pancreatitis type: unspecified pancreatitis type Qualified Code(s): K85.90 - Acute pancreatitis without necrosis or infection, unspecified
[2023-05-11] MEDS: LANTUS PER UNIT CHARGE SC SCH ×2 (08:40→20:32)
--- NOTE | 2023-05-11 10:04 | Pharmacy Report ---
Pharmacy Glycemic Short Note 2 - Date of Service May 11, 2023 - Glycemic Short BSG Results (Last 24 hours): 05/10/23 05/10/23 05/10/23 09:33 10:05 11:00 Glucose 193 H POC Glucose 175 H 139 H 05/10/23 05/10/23 05/10/23 12:00 13:39 13:55 Glucose POC Glucose 111 H 147 H 125 H 05/10/23 05/10/23 05/10/23 14:03 16:45 18:09 Glucose 104 H 246 H POC Glucose 150 H 05/10/23 05/10/23 05/11/23 20:24 22:26 00:03 Glucose 201 H POC Glucose 295 H 205 H 05/11/23 05/11/23 03:54 07:47 Glucose POC Glucose 154 H 200 H OUTPATIENT ANTIDIABETIC REGIMEN: * N/A - non-compliance with various antidiabetic regimens due to insurance/affordability issues HbA1c: 15.5% (05/08/23) ASSESSMENT: 05/10 * Patient transitioned off insulin drip yesterday afternoon, received 20 units of basal insulin yesterday * Fasting BSG 200 mg/dL - had ~6 units overnight of correctional insulin to help with BSGS - Plan to titrate basal to 25 units daily this AM * No change to CF/CR. Provider changing fluids (removing dextrose) this AM, anticipate BSGs to improve 05/09 * Pharmacy reconsulted today as DKA has resolved and planning for insulin drip for hypertriglyceridemia to also stop this afternoon. Provider reaching out to pharmacy to help with transition of drip to SQ insulin * Liquid diet to resume this afternoon - Discussed with RN and patient feeling okay today, but she feels he will likely not be taking too much PO intake. He didn't do well with diet the other day she reports. Plan to be more conservative with initiation of basal and will begin at 0.2 units/kg of basal. Will give now so it overlaps with drip. 05/08 * MW is a 47 year old male w/ reported longstanding history of type 2 DM (diagnosed at age 26) * Patient reports that he was previously on Novolog, but has not been taking since he lost his job in December 2022 * Also, reports trial of metformin, but that it was ineffective. Also, unable to afford empagliflozin. * HbA1c of 15.5% * Presented to ED on 05/07 w/ periumbilical abdominal pain * Found to have acute pancreatitis - currently NPO * Triglycerides of 3,698 mg/dL * Hyperglycemic thus far since time of admission and with mild DKA (anion gap 15, serum bicarbonate 19, VBG pH of 7.31) * Originally had planned to manage mild DKA with SC insulin, but insulin gtt preferred given concomitant hypertriglyceridemia * Will utilize DKA insulin gtt initially and plan to convert to hypertriglyceridemia insulin gtt set once gap is closed PLAN FOR INPATIENT GLYCEMIC CONTROL: * Basal: Lantus 25 units daily * Correctional insulin : Novolog ACHS * 110 - 140 * CF 15 / CR 5
[2023-05-11] MEDS: SODIUM CHLORIDE 0.45 % 1,000 ML IV SCH (10:25)
[2023-05-11] MEDS: LANTUS PER UNIT CHARGE SC ONE (13:53)
[2023-05-11] MEDS: ROSUVASTATIN CALCIUM 5 MG TAB PO STA (13:54)
--- NOTE | 2023-05-11 15:59 | Hospitalist Progress Note ---
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 He is being managed for the following: DKA ISO uncontrolled T2DM Mild pancreatitis - likely induced by high TG level. Hypertriglyceridemia Patient stated he used to be on short and long-acting insulin which he quit taking since he lost his job December 2022 He established with the PCP in February 2023 and discussed further diabetic management when he was prescribed Jardiance but it was too expensive monthly cost for him to afford hence did not start on it. Of note, patient has history of ezetimibe-induced pancreatitis in the past per patient. Patient presented with abdominal pain, nausea, vomiting. Denies any fever or cough. Admitting: WBC WNL, UA negative for UTI, viral screen negative, CXR with no acute infectious findings. Urinary ketones positive, lipase upper limit of normal, TG at 3698. CTAP consistent with mild pancreatitis. Follow-up admitting blood culture to rule out infection as a precipitant for DKA --so far no growth. DKA likely precipitated in the setting of medication noncompliance. A1c 15.5 this admission. Discussed with endocrinology 05/09, plan to discharge patient on insulin only at this point, follow-up with endocrinology within a month time. Patient transition from insulin GTT to subcu insulin 05/09 afternoon. Blood glucose level on the higher end of inpatient expected range, glycemic pharmacy managing. D5 half NS changed to half NS. Diet is scaled back to clear liquid diet today. Rosuvastatin increased from 5 to 20 mg daily. Discussed with GI and director of scientific research on-call, recommend starting fibrate and possible transfer to tertiary center on top of current Mx. This has been discussed with patient in detail, he will consider both of them in the coming days. See subjective for detailed discussion. 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 Long-term management: Improved glycemic control. Very low-fat diet. Active lifestyle, exercise regimen [150-minute of moderate intensity exercise per week] Weight loss by 5 to 10% Maintain increased dose of rosuvastatin, add fenofibrate Continue with fluid hydration, antiemetics, pain control as appropriate. Abnormal CXR: Admitting CXR with mild proximal left tracheal deviation. This could be positional or due to right thyroid goiter. Nonemergent thyroid ultrasound as an outpatient. Sinus tachycardia Questionable history of CHF and Cardiomyopathy? HTN HLD Heart failure with reduced ejection fraction x chronic: not in exacerbation. Admitting EKG with sinus tachycardia likely secondary to acute issues. History concerning for CHF and cardiomyopathy, echo this admission with EF of 45 to 50% with borderline diffuse hypokinesis. Cardiology on board, GDMT being titrated. -Increase metoprolol succinate to 50 mg twice daily -Continue Losartan 100 mg daily -Future considerations of adding spironolactone +/- Jardiance as an outpatient. Follow-up with cardiology as an outpatient, likely outpatient stress test and cardiac MRI. Continue telemetry monitoring, patient with no chest pain. DVT ppx: teds, scds Lines: 2 PIV CODE: FULL Dispo: From home, likely to remain in the hospital x 2-3 days Admission and Anticipated Discharge Date Admission Date: May 08, 2023 Subjective Patient was seen and examined at bedside. Patient was lying in bed, on room air, NAD, resting comfortably. Patient's at bedside. Patient denies any nausea, vomiting, abdominal pain. Patient reports minimal abd discomfort today. Will plan for scaling back diet to clear liquid today. Patient encouraged to report increasing abdominal pain to nursing. Patient denies any febrile illness or headache or dizziness or chest pain. Plan of care discussed in detail with patient and his at bedside. Complete update was provided to patient's as a background to formulate ongoing plan of care. They were made aware that his triglyceride level has stalled around 1700, and since patient was complaining of slight abdominal discomfort, the diet has been scaled back to clear liquid. Will continue with IV fluid with half NS at 100 mL an hour. Also we discussed about history of statin use, he stated that he had muscle pain with atorvastatin and hence he was put on rosuvastatin. We discussed that increasing the dose on rosuvastatin from 5 mg to 20 mg might help with improving triglyceride level faster but we will have to keep a close eye on side effects including muscle pain and elevated LFT. Patient and his were agreeable to increase the dose. We also discussed adding fenofibrate might have some beneficial effect on controlling TG level, patient would like to try increasing statin dose today and will consider fenofibrate in the coming days. Side effects of fenofibrate were discussed in detail including pancreatitis, liver enzyme elevation. Also we discussed possible need for transfer due to our facility not having plasmapheresis, he understands that he will need transfer if he has worrisome symptoms or his triglyceride does not improve but he would like to stay and is happy with the current level of management in this hospital at this point in time and would like to see how he does for 1 to 2 days before deciding on transfer to tertiary center. Physical Exam Physical Exam: GENERAL: Alert and oriented x3. NAD, on RA. HEENT: No pallor, no icterus. Pupils equal, round and reactive to light. Oral mucosa moist. NECK: No JVD, no neck masses. HEART: S1 and S2 heard. Regular rate and rhythm. No murmur, no gallop. RESPIRATORY SYSTEM: Normal AP diameter. No accessory muscle use. No wheezing, no crackles. ABDOMEN: Soft, bowel sounds present, nontender, no distention. CENTRAL NERVOUS SYSTEM: No facial droop. Speech is clear. Obeys simple commands. Moves extremities. EXTREMITIES: No edema, no erythema seen. Results & Data Results & Data Vital Signs (Past 12 Hours) Vital Signs Temp Pulse Pulse Resp BP Pulse Ox O2 Del Method 05/11/23 15:32 36.6 C 84 19 117/78 96 Room Air 05/11/23 15:00 89 05/11/23 11:04 36.6 C 81 19 123/86 97 Room Air 05/11/23 08:00 83 05/11/23 08:00 05/11/23 07:10 36.4 C L 81 20 145/90 H 98 Room Air O2 Del Method 05/11/23 15:32 05/11/23 15:00 05/11/23 11:04 05/11/23 08:00 05/11/23 08:00 Room Air 05/11/23 07:10 (1) Pancreatitis Acute pancreatitis complication: unspecified Chronicity: acute Pancreatitis type: unspecified pancreatitis type Qualified Code(s): K85.90 - Acute panc reatitis without necrosis or infection, unspecified (3) DM II (diabetes mellitus, type II), controlled Diabetes mellitus complication status: with unspecified complications Diabetes mellitus alf insulin use: unspecified supervisor intermediates insulin use status Qualified Code(s): E11.8 - Type 2 diabetes mellitus with unspecified complications
[2023-05-12] MEDS: ZOLPIDEM TARTRATE 5 MG TAB PO PRN (00:34)
[2023-05-12] MEDS: INSULIN ASPART PER UNIT CHARGE SC SCH (00:40)
[2023-05-12 05:33] LABS: BUN Creatinine Ratio 3.8 (10-20); Bilirubin,Total 0.6 mg/dl (0.2-1.0); Calcium 8.3 mg/dl (8.6-10.3); Creatinine Clr Calc Pharmacy 148.1 ml/min; Est GFR (African American) 123.1 ml/min; Est GFR (Non-African American) 106.2 ml/min; Phosphorus 3.8 mg/dl (2.5-4.9); Total Protein 5.6 gm/dl (6.0-8.3)
[2023-05-12 05:50] LABS: Bilirubin Direct 0.1 mg/dl (0-0.2); Magnesium 1.6 mg/dl (1.7-2.4); Potassium 3.6 mmol/L (3.5-5.1)
[2023-05-12] MEDS: LANTUS PER UNIT CHARGE SC SCH (08:37)
[2023-05-12] MEDS: ROSUVASTATIN CALCIUM 20 MG TAB PO SCH (09:17)
[2023-05-12] MEDS: MAGNESIUM SULFATE / D5W 1 GM/100 ML BAG IV SCH (09:32)
[2023-05-12] MEDS: FENOFIBRATE NANOCRYSTALLIZED 145 MG TABLET PO SCH (12:12)
--- NOTE | 2023-05-12 14:42 | Hospitalist Progress Note ---
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 He is being managed for the following: DKA ISO uncontrolled T2DM Mild pancreatitis - likely induced by high TG level. Hypertriglyceridemia Patient stated he used to be on short and long-acting insulin which he quit taking since he lost his job December 2022 He established with the PCP in February 2023 and discussed further diabetic management when he was prescribed Jardiance but it was too expensive monthly cost for him to afford hence did not start on it. Of note, patient has history of ezetimibe-induced pancreatitis in the past per patient. Patient presented with abdominal pain, nausea, vomiting. Denies any fever or cough. Admitting: WBC WNL, UA negative for UTI, viral screen negative, CXR with no acute infectious findings. Urinary ketones positive, lipase upper limit of normal, TG at 3698. CTAP consistent with mild pancreatitis. Follow-up admitting blood culture to rule out infection as a precipitant for DKA --so far no growth. DKA likely precipitated in the setting of medication noncompliance. A1c 15.5 this admission. Discussed with endocrinology 05/09, plan to discharge patient on insulin only at this point, follow-up with endocrinology within a month time. Patient transition from insulin GTT to subcu insulin 05/09 afternoon. Blood glucose level on the higher end of inpatient expected range, glycemic pharmacy managing. c/w half NS. c/w clear liquid diet today. c/w rosuvastatin 20 mg daily (increased dose on 05/10 from 5 mg daily). Added fenofibrated 05/11 after discussion with patient. Discussed with GI and warranty coordinator on-call 05/10, recommended starting fibrate and possible transfer to tertiary center on top of current Mx. This has been discussed with patient in detail, he will consider both of them in the coming days. See subjective 05/10 for detailed discussion. 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 Long-term management: Improved glycemic control. Very low-fat diet. Active lifestyle, exercise regimen [150-minute of moderate intensity exercise per week] Weight loss by 5 to 10% Maintain increased dose of rosuvastatin, c/w fenofibrate Continue with fluid hydration, antiemetics, pain control as appropriate. Abnormal CXR: Admitting CXR with mild proximal left tracheal deviation. This could be positional or due to right thyroid goiter. Nonemergent thyroid ultrasound as an outpatient. Sinus tachycardia Questionable history of CHF and Cardiomyopathy? HTN HLD Heart failure with reduced ejection fraction x chronic: not in exacerbation. Admitting EKG with sinus tachycardia likely secondary to acute issues. History concerning for CHF and cardiomyopathy, echo this admission with EF of 45 to 50% with borderline diffuse hypokinesis. Cardiology on board, GDMT being titrated. -Increase metoprolol succinate to 50 mg twice daily -Continue Losartan 100 mg daily -Future considerations of adding spironolactone +/- Jardiance as an outpatient. Follow-up with cardiology as an outpatient, likely outpatient stress test and cardiac MRI. Continue telemetry monitoring, patient with no chest pain. DVT ppx: teds, scds Lines: 2 PIV CODE: FULL Dispo: From home, likely to remain in the hospital x 2-3 days Admission and Anticipated Discharge Date Admission Date: May 08, 2023 Subjective Patient was seen and examined at bedside. Patient was lying in bed, on room air, NAD, resting comfortably. Patient's at bedside. Patient denies any nausea, vomiting, abdominal pain. Patient reports no abd discomfort today. Will plan for c/w clear liquid today. Patient encouraged to report increasing abdominal pain to nursing. Patient denies any febrile illness or headache or dizziness or chest pain. Pt would like to be started on fenofibrate today, ordered. They would like to continue treatment as it is in the hospital. Physical Exam Physical Exam: GENERAL: Alert and oriented x3. NAD, on RA. HEENT: No pallor, no icterus. Pupils equal, round and reactive to light. Oral mucosa moist. NECK: No JVD, no neck masses. HEART: S1 and S2 heard. Regular rate and rhythm. No murmur, no gallop. RESPIRATORY SYSTEM: Normal AP diameter. No accessory muscle use. No wheezing, no crackles. ABDOMEN: Soft, bowel sounds present, nontender, no distention. CENTRAL NERVOUS SYSTEM: No facial droop. Speech is clear. Obeys simple commands. Moves extremities. EXTREMITIES: No edema, no erythema seen. Results & Data Results & Data Vital Signs (Past 12 Hours) Vital Signs Temp Pulse Resp BP Pulse Ox O2 Del Method O2 Del Method 05/12/23 10:59 36.7 C 78 18 143/91 H 97 Room Air 05/12/23 08:00 Room Air 05/12/23 07:24 36.7 C 82 18 145/86 H 97 Room Air 05/12/23 04:30 36.6 C 81 16 134/85 95 Room Air 05/12/23 03:00 94 Room Air (1) Pancreatitis Acute pancreatitis complication: unspecified Chronicity: acute Pancreatitis type: unspecified pancreatitis type Qualified Code(s): K85.90 - Acute pancreatitis without necrosis or infection, unspecified (3) DM II (diabetes mellitus, type II), controlled Diabetes mellitus complication status: with unspecified complications Diabetes mellitus group home insulin use: unspecified group home insulin use status Qualified Code(s): E11.8 - Type 2 diabetes mellitus with unspecified complications
[2023-05-13 09:14] LABS: Anion Gap 7 (3-11); BUN Creatinine Ratio 2.6 (10-20); Blood Urea Nitrogen 2 mg/dl (6-23); Calcium 8.3 mg/dl (8.6-10.3); Carbon Dioxide 26 mmol/L (21-32); Chloride 105 mmol/L (98-107); Creatinine Clr Calc Pharmacy 151.9 ml/min; Est GFR (African American) 124.4 ml/min; Est GFR (Non-African American) 107.3 ml/min; Glucose 182 mg/dl (70-99(Fasting)); Phosphorus 3.2 mg/dl (2.5-4.9); Potassium 3.9 mmol/L (3.5-5.1); Sodium 138 mmol/L (136-145); Triglycerides 1202 mg/dl (0-150)
--- NOTE | 2023-05-13 13:05 | Hospitalist Progress Note ---
Date of Service May 13, 2023 Assessment & Plan (1) Pancreatitis: (2) Metabolic acidosis: (3) DM II (diabetes mellitus, type II), controlled: (4) Hyperglycemia: Plan: 47-year-old male with PMH of pancreatitis/likely ezetimibe-induced (per pt), HTN, HLD, reduced EF of 30% and cardiac cath in 2019 [clean per patient], T2DM since age 26 (noncompliance with medication secondary to job loss/lack of insurance] presented to the ED with complaint of increased abdominal pain, nausea, vomiting for few days [employer]. He is being managed for the following: DKA ISO uncontrolled T2DM Mild pancreatitis - likely induced by high TG level. Hypertriglyceridemia Patient stated he used to be on short and long-acting insulin which he quit taking since he lost his job December 2022 He established with the PCP in February 2023 and discussed further diabetic management when he was prescribed Jardiance but it was too expensive monthly cost for him to afford hence did not start on it. Of note, patient has history of ezetimibe-induced pancreatitis in the past per patient. Patient presented with abdominal pain, nausea, vomiting. Denies any fever or cough. Admitting: WBC WNL, UA negative for UTI, viral screen negative, CXR with no acute infectious findings. Urinary ketones positive, lipase upper limit of normal, TG at 3698. CTAP consistent with mild pancreatitis. Follow-up admitting blood culture to rule out infection as a precipitant for DKA --so far no growth. DKA likely precipitated in the setting of medication noncompliance. A1c 15.5 this admission. Discussed with endocrinology 05/09, plan to discharge patient on insulin only at this point, follow-up with endocrinology within a month time. Patient transition from insulin GTT to subcu insulin 05/09 afternoon. Blood glucose level on the higher end of inpatient expected range, glycemic pharmacy managing. c/w half NS. c/w clear liquid diet today. c/w rosuvastatin 20 mg daily (increased dose on 05/10 from 5 mg daily). c/w fenofibrate 05/11 (added after discussion with patient). Discussed with GI and household coordinator on-call 05/10, recommended starting fibrate and possible transfer to tertiary center on top of current Mx. This has been discussed with patient in detail, he will consider both of them in the coming days. See subjective 05/10 for detailed discussion. Glycemic pharmacy on board for management of diabetes. 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 Long-term management: Improved glycemic control. Very low-fat diet. Active lifestyle, exercise regimen [150-minute of moderate intensity exercise per week] Weight loss by 5 to 10% Maintain increased dose of rosuvastatin, c/w fenofibrate Continue with fluid hydration, antiemetics, pain control as appropriate. Abnormal CXR: Admitting CXR with mild proximal left tracheal deviation. This could be positional or due to right thyroid goiter. Nonemergent thyroid ultrasound as an outpatient. Pt reports h/o thyroid anomaly, pt to f/u w/ endocrinology on discharge. Sinus tachycardia Questionable history of CHF and Cardiomyopathy? HTN HLD Heart failure with reduced ejection fraction x chronic: not in exacerbation. Admitting EKG with sinus tachycardia likely secondary to acute issues. History concerning for CHF and cardiomyopathy, echo this admission with EF of 45 to 50% with borderline diffuse hypokinesis. Cardiology on board, GDMT being titrated. -Increase metoprolol succinate to 50 mg twice daily -Continue Losartan 100 mg daily -Future considerations of adding spironolactone +/- Jardiance as an outpatient. Follow-up with cardiology as an outpatient, likely outpatient stress test and cardiac MRI. Continue telemetry monitoring, patient with no chest pain. DVT ppx: teds, scds Lines: 2 PIV CODE: FULL Dispo: From home, likely to remain in the hospital x 2-3 days Admission and Anticipated Discharge Date Admission Date: May 08, 2023 Subjective Patient was seen and examined at bedside. Patient was lying in bed, on room air, NAD, resting comfortably. Patient denies any nausea, vomiting, abdominal pain. Patient reports no abd discomfort. C/w clear liquid today. Patient encouraged to report increasing abdominal pain to nursing. Patient denies any febrile illness or headache or dizziness or chest pain. Pt would like to continue treatment as it is in the hospital. Physical Exam Physical Exam: GENERAL: Alert and oriented x3. NAD, on RA. HEENT: No pallor, no icterus. Pupils equal, round and reactive to light. Oral mucosa moist. NECK: No JVD, no neck masses. HEART: S1 and S2 heard. Regular rate and rhythm. No murmur, no gallop. RESPIRATORY SYSTEM: Normal AP diameter. No accessory muscle use. No wheezing, no crackles. ABDOMEN: Soft, bowel sounds present, nontender, no distention. CENTRAL NERVOUS SYSTEM: No facial droop. Speech is clear. Obeys simple commands. Moves extremities. EXTREMITIES: No edema, no erythema seen. Results & Data Results & Data Vital Signs (Past 12 Hours) Vital Signs Temp Pulse Pulse Resp BP Pulse Ox O2 Del Method 05/13/23 12:08 36.4 C L 75 18 144/93 H 95 Room Air 05/13/23 08:14 36.7 C 74 18 151/96 H 96 Room Air 05/13/23 08:00 77 05/13/23 03:52 36.6 C 72 16 132/72 96 Room Air (1) Pancreatitis Acute pancreatitis complication: unspecified Chronicity: acute Pancreatitis type: unspecified pancreatitis type Qualified Code(s): K85.90 - Acute pancreatitis without necrosis or infection, unspecified (3) DM II (diabetes mellitus, type II), controlled Diabetes mellitus complication status: with unspecified complications Diabetes mellitus longterm insulin use: unspecified long term care administrator insulin use status Qualified Code(s): E11.8 - Type 2 diabetes mellitus with unspecified complications
[2023-05-13] MEDS: SODIUM CHLORIDE 0.45 % 1,000 ML IV SCH (14:53)
--- NOTE | 2023-05-14 08:45 | Pharmacy Report ---
Pharmacy Glycemic Short Note 2 - Date of Service May 14, 2023 - Glycemic Short BSG Results (Last 24 hours): 05/13/23 05/13/23 05/13/23 08:01 09:02 12:26 Glucose 182 H POC Glucose 269 H 209 H 05/13/23 05/13/23 05/13/23 16:18 17:08 20:14 Glucose POC Glucose 73 166 H 178 H 05/14/23 05/14/23 03:27 07:54 Glucose POC Glucose 101 H 161 H OUTPATIENT ANTIDIABETIC REGIMEN: * N/A - non-compliance with various antidiabetic regimens due to insurance/affordability issues HbA1c: 15.5% (05/08/23) ASSESSMENT: 05/14/23 * Blood sugars trended down yesterday throughout the day * Received 70 units of insulin (30 units of basal and 40 units of prandial/correctional bolus) * Fasting blood sugar much improved from yesterday (269->161 mg/dL) * Triglycerides 929 mg/dL last evening * Do not anticipate any changes to glycemic regimen today 05/10 * Patient transitioned off insulin drip yesterday afternoon, received 20 units of basal insulin yesterday * Fasting BSG 200 mg/dL - had ~6 units overnight of correctional insulin to help with BSGS - Plan to titrate basal to 25 units daily this AM * No change to CF/CR. Provider changing fluids (removing dextrose) this AM, anticipate BSGs to improve 05/09 * Pharmacy reconsulted today as DKA has resolved and planning for insulin drip for hypertriglyceridemia to also stop this afternoon. Provider reaching out to pharmacy to help with transition of drip to SQ insulin * Liquid diet to resume this afternoon - Discussed with RN and patient feeling okay today, but she feels he will likely not be taking too much PO intake. He didn't do well with diet the other day she reports. Plan to be more conservative with initiation of basal and will begin at 0.2 units/kg of basal. Will give now so it overlaps with drip. 05/08 * MW is a 47 year old male w/ reported longstanding history of type 2 DM (diagnosed at age 26) * Patient reports that he was previously on Novolog, but has not been taking since he lost his job in December 2022 * Also, reports trial of metformin, but that it was ineffective. Also, unable to afford empagliflozin. * HbA1c of 15.5% * Presented to ED on 05/07 w/ periumbilical abdominal pain * Found to have acute pancreatitis - currently NPO * Triglycerides of 3,698 mg/dL * Hyperglycemic thus far since time of admission and with mild DKA (anion gap 15, serum bicarbonate 19, VBG pH of 7.31) * Originally had planned to manage mild DKA with SC insulin, but insulin gtt preferred given concomitant hypertriglyceridemia * Will utilize DKA insulin gtt initially and plan to convert to hypertriglyceridemia insulin gtt set once gap is closed PLAN FOR INPATIENT GLYCEMIC CONTROL: * Basal insulin * Lantus 30 units SC daily * Bolus insulin * NovoLog per scale ACHS or Q6hrs while NPO * Goal Range: Low 110 mg/dL - High 140 mg/dL * Correction Factor: 12 mg/dL/unit * Nutritional / Prandial insulin per carb ratio of 1 unit per 4 grams CHO consumed
--- NOTE | 2023-05-14 15:34 | Hospitalist Progress Note ---
Date of Service May 14, 2023 Assessment & Plan (1) Pancreatitis: (2) Metabolic acidosis: (3) DM II (diabetes mellitus, type II), controlled: (4) Hyperglycemia: Plan: 47-year-old male with PMH of pancreatitis/likely ezetimibe-induced (per pt), HTN, HLD, reduced EF of 30% and cardiac cath in 2019 [clean per patient], T2DM since age 26 (noncompliance with medication secondary to job loss/lack of insurance] presented to the ED with complaint of increased abdominal pain, nausea, vomiting for few days [employer] MA[employer]. He is being managed for the following: DKA ISO uncontrolled T2DM Mild pancreatitis - likely induced by high TG level. Hypertriglyceridemia Patient stated he used to be on short and long-acting insulin which he quit taking since he lost his job December 2022 He established with the PCP in February 2023 and discussed further diabetic management when he was prescribed Jardiance but it was too expensive monthly cost for him to afford hence did not start on it. Of note, patient has history of ezetimibe-induced pancreatitis in the past per patient. Patient presented with abdominal pain, nausea, vomiting. Denies any fever or cough. Admitting: WBC WNL, UA negative for UTI, viral screen negative, CXR with no acute infectious findings. Urinary ketones positive, lipase upper limit of normal, TG at 3698. CTAP consistent with mild pancreatitis. Follow-up admitting blood culture to rule out infection as a precipitant for DKA --so far no growth. DKA likely precipitated in the setting of medication noncompliance. A1c 15.5 this admission. Discussed with endocrinology 05/09, plan to discharge patient on insulin only at this point, follow-up with endocrinology within a month time. Patient transition from insulin GTT to subcu insulin 05/09 afternoon. Blood glucose level - glycemic pharmacy managing. c/w half NS. c/w clear liquid diet today. Pt agrees with the plan so far. c/w rosuvastatin 20 mg daily (increased dose on 05/10 from 5 mg daily). c/w fenofibrate 05/11 (added after discussion with patient). Discussed with GI and roll forming machine operator on-call 05/10, recommended starting fibrate and possible transfer to tertiary center on top of current Mx. This has been discussed with patient in detail, he will consider both of them in the coming days. See subjective 05/10 for detailed discussion. Glycemic pharmacy on board for management of diabetes. 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 Long-term TG management: Improved glycemic control. Very low-fat diet. Active lifestyle, exercise regimen [150-minute of moderate intensity exe rcise per week] Weight loss by 5 to 10% Maintain increased dose of rosuvastatin, c/w fenofibrate DC recs for DM Mx: 1.) Toujeo Pen. Write Rx as "Toujeo 30 - 45 units/day". 2.) Novolog Pen- write Rx as "per carb coverage and sliding scale up to 50 units/day". 3.) Pen [place] 32 gauge "- to inject up to 5x/day. 4.) OneTouch Ultra Test Strips- to check 4x/day. 5.) OneTouch Delica Lancets 33 gauge- to check 4x/day. Continue with fluid hydration, antiemetics, pain control as appropriate. Abnormal CXR: Admitting CXR with mild proximal left tracheal deviation. This could be positional or due to right thyroid goiter. Nonemergent thyroid ultrasound as an outpatient. Pt reports h/o thyroid anomaly, pt to f/u w/ endocrinology on discharge. Sinus tachycardia Questionable history of CHF and Cardiomyopathy? HTN HLD Heart failure with reduced ejection fraction x chronic: not in exacerbation. Admitting EKG with sinus tachycardia likely secondary to acute issues. History concerning for CHF and cardiomyopathy, echo this admission with EF of 45 to 50% with borderline diffuse hypokinesis. Cardiology evaled, GDMT being titrated. -Increase metoprolol succinate to 50 mg twice daily -Continue Losartan 100 mg daily -Future considerations of adding spironolactone +/- Jardiance as an outpatient. Follow-up with cardiology as an outpatient, likely outpatient stress test and cardiac MRI. Continue telemetry monitoring, patient with no chest pain. DVT ppx: teds, scds Lines: 2 PIV CODE: FULL Dispo: From home, likely to remain in the hospital x 2-3 days Admission and Anticipated Discharge Date Admission Date: May 08, 2023 Subjective Patient was seen and examined at bedside. Patient was lying in bed, on room air, NAD, resting comfortably. Patient denies any nausea, vomiting, abdominal pain. Patient reports no abd discomfort. C/w clear liquid today. Patient encouraged to report increasing abdominal pain to nursing. Patient denies any febrile illness or headache or dizziness or chest pain. Pt would like to continue treatment as it is in the hospital for the time being but was frustrated w/ slow decrease in TG level. Frankly, TG has significantly dropped since presentation level which was impressively high level. He was explained he is still unsafe for discharge due to TG being high 900s and high risk of pancreatitis with this level. Pt does understand that and is willing to stay 1-2 more days and see how he does. Physical Exam 2 Physical Exam: GENERAL: Alert and oriented x3. NAD, on RA. HEENT: No pallor, no icterus. Pupils equal, round and reactive to light. Oral mucosa moist. NECK: No JVD, no neck masses. HEART: S1 and S2 heard. Regular rate and rhythm. No murmur, no gallop. RESPIRATORY SYSTEM: Normal AP diameter. No accessory muscle use. No wheezing, no crackles. ABDOMEN: Soft, bowel sounds present, nontender, no distention. CENTRAL NERVOUS SYSTEM: No facial droop. Speech is clear. Obeys simple commands. Moves extremities. EXTREMITIES: No edema, no erythema seen. Results & Data Results & Data Vital Signs (Past 12 Hours) Vital Signs Temp Pulse Pulse Resp BP BP Pulse Ox 05/14/23 11:33 36.4 C L 60 18 149/98 H 97 05/14/23 07:46 36.6 C 68 20 151/91 H 95 05/14/23 07:35 71 05/14/23 03:48 36.6 C 69 18 148/84 H 95 O2 Del Method 05/14/23 11:33 Room Air 05/14/23 07:46 Room Air 05/14/23 07:35 05/14/23 03:48 Room Air (1) Pancreatitis Acute pancreatitis complication: unspecified Chronicity: acute Pancreatitis type: unspecified pancreatitis type Qualified Code(s): K85.90 - Acute pancreatitis without necrosis or infection, unspecified (3) DM II (diabetes mellitus, type II), controlled Diabetes mellitus complication status: with unspecified complications Diabetes mellitus [facility] insulin use: unspecified [facility] insulin use status Qualified Code(s): E11.8 - Type 2 diabetes mellitus with unspecified complications
[2023-05-14] MEDS: FOLIC ACID 1 MG TAB PO SCH (17:15)
[2023-05-14] MEDS: THIAMINE HCL 100 MG TAB PO SCH (17:15)
[2023-05-14] MEDS: CEROVITE ADV FORMULA TAB PO SCH (17:15)
[2023-05-15 09:26] LABS: Albumin Level 3.4 gm/dl (3.4-5.0); Bilirubin,Total 0.8 mg/dl (0.2-1.0); Calcium 8.8 mg/dl (8.6-10.3); Potassium 3.6 mmol/L (3.5-5.1)
[2023-05-15] MEDS: LANTUS PER UNIT CHARGE SC SCH (09:26)
[2023-05-15 09:32] LABS: Albumin Globulin Ratio 1.3 (0.9-2); BUN Creatinine Ratio 2.3 (10-20); Creatinine Clr Calc Pharmacy 136.5 ml/min; Est GFR (African American) 118.8 ml/min; Est GFR (Non-African American) 102.5 ml/min; Globulin 2.7 gm/dl (2.5-4.0); Total Protein 6.1 gm/dl (6.0-8.3)
--- NOTE | 2023-05-15 13:11 | Discharge Summary ---
Date of Service May 15, 2023 Admission HPI Per Admitting Provider This is a 47 yo M with PMHx of pancreatitis, HTN, HLD, history of tachycardia with previous echo which showed reduced EF of 30% and cardiac cath in 2019 which is reportedly clean per the patient, history of DM type II since age 26, but has been off of NovoLog since he lost his job and health insurance in December 2022. He's trialed metformin however states that it didn't work effectively to reduce his A1C. 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 He is requesting another prescription for insulin versus diabetic medication at this time as he feels he will be able to afford it, his insurance kicks in in the middle of May. He presents to hospital with increased abdominal pain, nausea, vomiting. CT of the abdomen is showing mild pancreatitis. He has not taken medications including novolog for several weeks. This started on Sunday, with abdominal pain and 1 episode of diarrhea. He reports no further diarrhea since that time, but epigastric abdominal pain is coming down his left flank region to the lower quadrant. He has had intermittent nausea, no vomiting, loss of appetite, without any p.o. intake today. He reports having chills/sweats the last 3 days with possible fever but did not take his temperature at home. He denies any recent sick contacts. Patient is tachycardic at bedside, he states that he has consistently had a faster heartbeat. He was previously followed by [facility] in [place] in 2019 where he was noted to have had cardiac pauses where he felt like his heart stopped, at that time he was on testosterone. In echocardiogram was done at that point showing heart function of 30%, and then underwent a PCI which showed clean cardiac cath per the patient. He thinks he had a repeat ultrasound of his heart later which showed improvement in such after being taken off of testosterone replacement. On admission, glucose is 400, improved to 270 with fluids in the ER. Metabolic acidosis with pH of 7.3, AG of 17, and pt with urines showing ketones. He feels improved since coming here and receiving fluids. Social history: Denies alcohol use, tobacco use, illicit drug use and marijuana Family history: Strong family history of diabetes, his mom, maternal uncle sister and father all have diabetes, father side has strong history of hypertension Surgical history: Left knee meniscus repair x 3, last in 2013 Right knee meniscus repair x 1 Bilateral shoulder rotator cuff surgery, Right in 2017, left in 2019 Admission Exam Per Admitting Provider General: awake, alert, no apparent distress, white male Head: Normocephalic, atraumatic ENT: PERRL, EOMI, no pharyngeal exudate, mucous membranes moist Chest: Clear to auscultation, on room air, no adventitious breath sounds Cardiac: + sinus tachy, no murmur, no JVD, normal peripheral pulses, good capillary refill Abdominal: NABS x 4 quadrants, soft, nondistended, + epigastric tender to palpation, no rebound or guarding Extremities: Normal inspection, no peripheral edema or erythema, calfs nontender to palpation Psych: Normal mood and affect Neuro: AAO x 3, strength intact bilaterally and rated 5/5, no motor deficits, speech is clear, no peripheral sensory deficits Principal Diagnosis DKA in the setting of uncontrolled type 2 diabetes mellitus Type 2 diabetes mellitus Mild pancreatitis in the setting of high triglyceride level Hypertriglyceridemia Abnormal chest x-ray with proximal left tracheal deviation Heart failure with reduced ejection fraction Discharge Exam GENERAL: Alert and oriented x3. NAD, on RA. HEENT: No pallor, no icterus. Pupils equal, round and reactive to light. Oral mucosa moist. NECK: No JVD, no neck masses. HEART: S1 and S2 heard. Regular rate and rhythm. No murmur, no gallop. RESPIRATORY SYSTEM: Normal AP diameter. No accessory muscle use. No wheezing, no crackles. ABDOMEN: Soft, bowel sounds present, nontender, no distention. CENTRAL NERVOUS SYSTEM: No facial droop. Speech is clear. Obeys simple commands. Moves extremities. EXTREMITIES: No edema, no erythema seen. Discharge Data Allergies Allergy/AdvReac Type Severity Reaction Status Date / Time No Known Allergies Allergy Unverified 05/08/23 09:19 Consultations 05/08/23 13:01 ED Decision to Admit Stat 05/08/23 20:38 Consult Cardiology Routine 05/11/23 12:15 HIM [Consult Health Information Management] Routine Ordered Studies 05/08/23 09:36 CT Abd and Pelvis [CT abd pelvis IV con only] Stat Hospital Course (1) Pancreatitis: (2) Metabolic acidosis: (3) DM II (diabetes mellitus, type II), controlled: (4) Hyperglycemia: 47-year-old male with PMH of pancreatitis/likely ezetimibe-induced (per pt), HTN, HLD, reduced EF of 30% and cardiac cath in 2019 [clean per patient], T2DM since age 26 (noncompliance with medication secondary to job loss/lack of insurance] presented to the ED with complaint of increased abdominal pain, nausea, vomiting for few days FRAME NAILER. He was managed for the following: DKA ISO uncontrolled T2DM Mild pancreatitis - likely induced by high TG level. Hypertriglyceridemia Patient stated he used to be on short and long-acting insulin which he quit taking since he lost his job December 2022 He established with the PCP in February 2023 and discussed further diabetic management when he was prescribed Jardiance but it was too expensive monthly cost for him to afford hence did not start on it. Of note, patient has history of ezetimibe-induced pancreatitis in the past per patient. Patient presented with abdominal pain, nausea, vomiting. Denies any fever or cough. Admitting: WBC WNL, UA negative for UTI, viral screen negative, CXR with no acute infectious findings. Urinary ketones positive, lipase upper limit of normal, TG at 3698. CTAP consistent with mild pancreatitis. Follow-up admitting blood culture to rule out infection as a precipitant for DKA --so far no growth. DKA likely precipitated in the setting of medication noncompliance. A1c 15.5 this admission. Discussed with endocrinology 05/09, plan to discharge patient on insulin only at this point, follow-up with endocrinology within a month time. Appreciate glycemic pharmacy and educator senior clinical help. c/w rosuvastatin 20 mg daily (increased dose on 05/10 from 5 mg daily). c/w fenofibrate 05/11 (added after discussion with patient). Patient's triglyceride level down from 3698 to 747. Patient would like to go home today. He is hemodynamically stable. No abdominal pain. Patient advised to report to emergency or PCP office immediately if with new upper abdominal pain plus minus nausea, vomiting, pain radiation to back. Patient to closely follow-up with PCP, endocrinology and cardiology upon discharge for ongoing management of his diabetes and triglyceride level. Long-term TG management: Patient has been educated about this multiple times. Improved glycemic control. Very low-fat diet. Active lifestyle, exercise regimen [150-minute of moderate intensity exercise per week] Weight loss by 5 to 10% Maintain increased dose of rosuvastatin, c/w fenofibrate DC recs for DM Mx: 1.) Toujeo Pen. Write Rx as "Toujeo 30 - 45 units/day". 2.) Novolog Pen- write Rx as "per carb coverage and sliding scale up to 50 units/day". 3.) Pen Charlotte 32 gauge "- to inject up to 5x/day. 4.) OneTouch Ultra Test Strips- to check 4x/day. 5.) OneTouch Delica Lancets 33 gauge- to check 4x/day. Will trial soft diet and if no abdominal pain in next 3 hours patient will be discharged. Abnormal CXR: Admitting CXR with mild proximal left tracheal deviation. This could be positional or due to right thyroid goiter. Nonemergent thyroid ultrasound as an outpatient. Pt reports h/o thyroid anomaly, pt to f/u w/ endocrinology on discharge. Patient has been made aware to get thyroid ultrasound as an outpatient. Sinus tachycardia Questionable history of CHF and Cardiomyopathy? HTN HLD Heart failure with reduced ejection fraction x chronic: not in exacerbation. Admitting EKG with sinus tachycardia likely secondary to acute issues. History concerning for CHF and cardiomyopathy, echo this admission with EF of 45 to 50% with borderline diffuse hypokinesis. Cardiology evaled, GDMT being titrated. -Increase metoprolol succinate to 50 mg twice daily -Continue Losartan 100 mg daily -Future considerations of adding spironolactone +/- Jardiance as an outpatient. Follow-up with cardiology as an outpatient, likely outpatient stress test and cardiac MRI. Continue telemetry monitoring, patient with no chest pain. DVT ppx: teds, scds Lines: 2 PIV CODE: FULL Patient is being discharged to home with following instruction at the point of discharge: Follow-up with your primary care physician within a week time and likely you will need labs CBC/CMP/magnesium/phosphorus. At presentation you had pancreatitis and diabetic ketoacidosis. Your A1c was 15.5. For simplicity, you will be discharged only on insulin but this is not complete treatment for your diabetes. You will need to follow-up with endocrinology in a week or 2-week time upon discharge, your diabetic medications will continuously be optimized. Your insulin regimen upon discharge would look like: Lantus 30 units subcutaneous daily NovoLog per sliding scale with a finger stick glucose goal range of 110-140, CF of 15 and carb ratio of 5. You had very high triglyceride level at presentation - 3698 mg per deciliter. This is likely the reason for your acute pancreatitis. Your rosuvastatin has been up from 5 mg daily to 20 mg daily. Tricor has been added. As discussed at the bedside multiple times, maintain very low-fat diet. You will need repeat liver function test in about 1 month's time. Coordinate with your PCP office to set up the test. For long-term monitoring/management of your hypertriglyceridemia, continue to follow-up with your cardiology and endocrinology office. Also incorporating active lifestyle and regular exercise regimen [150 minutes of moderate intensity exercise per week] and improved glycemic control and weight loss by 5 to 10% will help decrease your triglyceride level. In any event you have new upper belly pain plus minus associated nausea and vomiting and radiation of pain to back, report to emergency or your PCP office immediately. As discussed at the bedside, there was abnormal chest x-ray which showed mild deviation of your trachea to the left. You will need thyroid ultrasound as an outpatient. Coordinate with your PCP office to set up the test. Cardiology evaluated you for your history of cardiomyopathy and heart failure. Your metoprolol succinate has been increased to 50 mg twice daily and you will continue your losartan at 100 mg daily. Future consideration would be adding spironolactone, and /or Jardiance as an outpatient. Follow-up with your cardiology in 2 to 4 weeks time upon discharge. They will also likely evaluate you for outpatient stress test and possibly cardiac MRI. Take your medications as prescribed. Please make sure that you are able to get your medications today by calling your pharmacy before you leave the hospital so that your treatment continuity is not broken. Home Health Attestation I certify that this patient is under my care and that I, or a physicians patient care assistant working with me, had a face to-face encounter that meets the home health [id number] encounter requirements with this patient. The encounter with the patient was in whole, or in part, for the following medical condition, which is the primary reason for home health care (list medical condition): I certify that, based on my findings, the following services are medically necessary home health services: My clinical findings support the need for the above services because: Further, I certify that my clinical findings support that this patient is homebound (i.e. absences from home require considerable and taxing effort and are for medical reasons or jewish services or infrequently or of short duration when for other reasons) because: Certification for Home Health Services: Based on the above findings, I certify that this patient is confined to the home and needs intermittent fpc care, physical therapy and/or speech therapy or continues to need occupational therapy. The patient is under my care, and I have initiated the establishment of the plan of care. This patient will be followed by a physician who will periodically review the plan of care. Total Time Total Time Spent Total Time Spent (In Minutes): 45 Discharge Plan Discharge Items Patient Disposition: Home - Self-Care Reason For Visit: PANCREATITIS Discharge Diagnosis: DKA in the setting of uncontrolled type 2 diabetes mellitus Type 2 diabetes mellitus Mild pancreatitis in the setting of high triglyceride level Hypertriglyceridemia Abnormal chest x-ray with proximal left tracheal deviation Heart failure with reduced ejection fraction Activity: Resume your previous activity Non-emergency contact: Primary Care Provider Call non-emergency contact if: you have any medication questions, your symptoms worsen and your temperature is above 101.5 Follow-up/Referrals: Ty Quiñones MD [Physician] - 06/18/23 1:00 pm (Endocrinology) Romana Mays MD [Outside Practitioners] - (Date & Time 05/17/2023 11:20 AM Provider Romana Mays MD Department [facility] ) David Matamoros DO [Food Selector] - (Date & Time 06/15/2023 10:00 AM Provider David Matamoros DO Department Cardiology, [facility] ) Diet: Carb Consistent or DM2 and Low Fat Diet Texture: Easy to Chew Addtl Attending Provider Instructions: Follow-up with your primary care physician within a week time and likely you will need labs CBC/CMP/magnesium/phosphorus. At presentation you had pancreatitis and diabetic ketoacidosis. Your A1c was 15.5. For simplicity, you will be discharged only on insulin but this is not complete treatment for your diabetes. You will need to follow-up with endocrinology in a week or 2-week time upon discharge, your diabetic medications will continuously be optimized. Your insulin regimen upon discharge would look like: Lantus 30 units subcutaneous daily NovoLog per sliding scale with a finger stick glucose goal range of 110-140, CF of 15 and carb ratio of 5. You had very high triglyceride level at presentation - 3698 mg per deciliter. This is likely the reason for your acute pancreatitis. Your rosuvastatin has been up from 5 mg daily to 20 mg daily. Tricor has been added. As discussed at the bedside multiple times, maintain very low-fat diet. You will need repeat liver function test in about 1 month's time. Coordinate with your PCP office to set up the test. For long-term monitoring/management of your hypertriglyceridemia, continue to follow-up with your cardiology and endocrinology office. Also incorporating active lifestyle and regular exercise regimen [150 minutes of moderate intensity exercise per week] and improved glycemic control and weight loss by 5 to 10% will help decrease your triglyceride level. In any event you have new upper belly pain plus minus associated nausea and vomiting and radiation of pain to back, report to emergency or your PCP office immediately. As discussed at the bedside, there was abnormal chest x-ray which showed mild deviation of your trachea to the left. You will need thyroid ultrasound as an outpatient. Coordinate with your PCP office to set up the test. Cardiology evaluated you for your history of cardiomyopathy and heart failure. Your metoprolol succinate has been increased to 50 mg twice daily and you will continue your losartan at 100 mg daily. Future consideration would be adding spironolactone, and /or Jardiance as an outpatient. Follow-up with your cardiology in 2 to 4 weeks time upon discharge. They will also likely evaluate you for outpatient stress test and possibly cardiac MRI. Take your medications as prescribed. Please make sure that you are able to get your medications today by calling your pharmacy before you leave the hospital so that your treatment continuity is not broken. Pending Studies at Discharge: No Stand-Alone Forms: My [facility], Smoking Cessation Medications and DC Order Prescriptions: New rosuvastatin [Crestor] 20 mg Tablet 20 mg PO QAM Qty: 30 0RF fenofibrate nanocrystallized 145 mg Tablet 145 mg PO QAM Qty: 30 0RF metoprolol succinate 50 mg Tablet Extended Release 24 Hr 50 mg PO BID Qty: 60 0RF docusate sodium 100 mg Capsule 100 mg PO DAILY PRN (Reason: constipation) Qty: 30 0RF folic acid 1 mg Tablet 1 mg PO QAM Qty: 30 0RF Cerovite Senior 0.4 mg-300 mcg- 250 mcg Tablet 1 tab PO QAM Qty: 30 0RF thiamine HCl (vitamin B1) 100 mg Tablet 100 mg PO DAILY Qty: 30 0RF insulin glargine U-300 conc [Toujeo SoloStar U-300 Insulin] 300 unit/mL (1.5 mL) insulin pen See Rx Instructions .ROUTE .COMPLEX Qty: 4.5 0RF Rx Instructions: Toujeo 30-45 units daily. insulin aspart U-100 [Novolog FlexPen U-100 Insulin] 100 unit/mL (3 mL) insulin pen 1 sliding scale dose subcut USEASDIRECTD Qty: 15 0RF Rx Instructions: Use per carb coverage and sliding scale up to 50 units/day. (DME) OneTouch Ultra Test Strip See Rx Instructions .Route Qty: 100 0RF Rx Instructions: upto four times a day (DME) lancets [OneTouch Delica Plus Lancet] 33 gauge misc See Rx Instructions .Route Qty: 100 0RF Rx Instructions: upto 4 times a day. (DME) pen needle, diabetic [Pen Needle] 32 gauge x 5/32" needle See Rx Instructions .Route Qty: 100 0RF Rx Instructions: inject upto 5 times a day Continued zolpidem 5 mg Tablet 5 mg PO HS PRN (Reason: Sleep) hydroxyzine HCl 10 mg tablet 10 mg PO DAILY PRN (Reason: Anxiety) losartan 100 mg Tablet 100 mg PO DAILY Discontinued rosuvastatin 5 mg tablet 5 mg PO QAM Discharge Orders: Discharge Order (Routine); Ordered 05/15/23 Ordered By: Lorna Beck Admission Data Admit Date/Time: 05/08/23 13:29 Attending Provider: Lorna Beck Admit Provider: Yee Ledesma Primary Care Provider: Mitzi Dickerson Other Providers: Yee Ledesma; David Matamoros
== END 2023-05-15 16:07 | disposition home or self-care (01) | DRG 438 ==
LOC: ED 09:12 → EDINP 13:29 → SUATTDRO 13:29 → 4W 05-10 03:05 → 2N 05-12 23:59